=== PATIENT | male | born 1970 | race Caucasian/White ===

== ENCOUNTER 2017-09-05 09:29 | Day surgery (SDC) | payer OTHER ==
--- NOTE | 2017-09-05 09:16 | GHP ---
[f rep st] PREOP HISTORY AND PHYSICAL DATE OF ADMISSION: 09/05/2017 CHIEF COMPLAINT: Colon cancer. HISTORY OF PRESENT ILLNESS: The patient is a 46-year-old man who had blood per rectum and ultimately had a colonoscopy which showed a near circumferential, 10-cm long sigmoid colonic mass. He is still having regular bowel movements. They are softer and having 1-3 bowel movements a day. He is not singh ving a large amount of blood. He had a CT scan, which showed 10 lesions in the liver mainly on the r ight side. He will be undergoing neoadjuvant chemotherapy. He presents for port placement. PAST MEDICAL HISTORY: Anxiety, diabetes, asthma. PAST SURGICAL HISTORY: None. MEDICATIONS: Advair, Adderall, Lamictal, Zoloft. FAMILY HISTORY: Diabetes, heart disease, hypertension, prostate cancer. SOCIAL HISTORY: He does drink alcohol. He is . He never has used tobacco. REVIEW OF SYSTEMS: 10-point review of systems negative except for anxiety otherwise per HPI. PHYSICAL EXAMINATION: GENERAL APPEARANCE: Pleasant, well-nourished, well-groomed man at visit with . HEENT: Normocephalic. No gross hearing deficits. Mucous membranes moist. Pupils equal and round. No scleral icterus. LUNGS: Clear to auscultation bilaterally. No increased work of breathi ng. CARDIAC: Regular rate. No peripheral edema. ABDOMEN: No surgical incisions. Soft, nontender , nondistended. MUSCULOSKELETAL: Normal gait. Normal nails. PSYCH: Anxious. NEURO: Grossly inta ct. IMPRESSION AND PLAN: The patient is a 46-year-old with metastatic colon cancer. I will place a port . The risks and benefits, including, but not limited to, stroke, heart attack, , blood clots, i nfection, bleeding, pneumothorax were discussed. /[id number]/MODL
[~2017-09-05 09:29] MED LIST: ceFAZolin 2 GM/DEXTROSE 100 ML IV ONE
[2017-09-05] MEDS ORDERED: BUPIVACAINE 0.5% 30 ML SDV ONE (10:22)
[2017-09-05] MEDS ORDERED: LR 1,000 ML IV ONE (10:52)
[2017-09-05] MEDS ORDERED: MIDAZOLAM 2 MG/2 ML VIAL ONE ×2 (11:10→11:34)
[2017-09-05] MEDS ORDERED: PROPOFOL/EMULSION 500 MG/50 ML BOTTLE IV ONE (11:10)
[2017-09-05] MEDS ORDERED: fentaNYL 100 MCG/2 ML INJ ONE (11:10)
[2017-09-05] MEDS ORDERED: SUGAMMADEX SODIUM 200 MG/2 ML VIAL IVP ONE (11:31)
[2017-09-05] MEDS ORDERED: ROCURONIUM 50 MG/5 ML VIAL ONE (11:31)
[2017-09-05] MEDS ORDERED: ONDANSETRON 4 MG/2 ML VIAL ONE (11:31)
[2017-09-05] MEDS ORDERED: SUCCINYLCHOLINE CHLORIDE*ANESTHESIA ONLY*200 MG/10 ML SYR IVP ONE (11:31)
[2017-09-05] MEDS ORDERED: LIDOCAINE 2% 5 ML SDV ONE (11:31)
[2017-09-05] MEDS ORDERED: NALOXONE HCL 0.4 MG/ML INJ IVP PRN (11:50)
[2017-09-05] MEDS ORDERED: ALBUTEROL 3 ML DEYVIAL IH PRN (11:50)
[2017-09-05] MEDS ORDERED: LR 500 ML IV PRN (11:50)
[2017-09-05] MEDS ORDERED: ONDANSETRON 4 MG/2 ML VIAL IVP PRN (11:50)
[2017-09-05] MEDS ORDERED: fentaNYL 100 MCG/2 ML INJ IVP PRN (11:50)
[2017-09-05] MEDS ORDERED: DEXAMETHASONE 4 MG/ML VIAL IVP PRN (11:50)
--- NOTE | 2017-09-05 11:50 | PDANEPAE ---
ANE Past Medical History - Cardiovascular History Hx Hypertension: No Hx Arrhythmias: No Hx Chest Pain: No Hx Coronary Artery / Peripheral Vascular Disease: No Hx CHF / Valvular Disease: No Hx Palpitations: No - Pulmonary History Hx COPD: No Hx Asthma/Reactive Airway Disease: Yes Hx Recent Upper Respiratory Infection: No Hx Oxygen in Use at Home: No Hx Sleep Apnea: Yes Sleep Apnea Screening Result - Last Documented: Positive Pulmonary History Comment: asthma worse with activity and dust exposure - Neurologic History Hx Cerebrovascular Accident: No Hx Seizures: No Hx Dementia: No - Endocrine History Hx Diabetes: Yes Endocrine History Comment: pre diabetic - Renal History Hx Renal Disorders: No - Liver History Hx Hepatic Disorders: No - Neurological & Psychiatric Hx Hx Neurological and Psychiatric Disorders: Yes Neurological / Psychiatric History Comment: bipolar , depression& anxiety - Cancer History Hx Cancer: Yes Cancer History Comment: coon cancer with mets to liver - Congenital Disorder History Hx Congenital Disorders: No - GI History Hx Gastrointestinal Disorders: No - Chronic Pain History Chronic Pain: No - Surgical History Prior Surgeries: as had inguinal hernia repair. as had soft palate repair ANE Review of Systems Review of Systems: - Exercise capacity METS (RN): 4 METS ANE Patient History - Allergies Allergies/Adverse Reactions: No Known Allergies Allergy (Verified 09/05/17 10:32) - Home Medications Home Medications: Lamictal 02/15/11 [Last Taken 09/05/17 07:00] Adderall 10 mg Tablet 07/31/16 [Last Taken 08/29/17] Citalopram 07/31/16 [Last Taken 09/05/17 07:00] ZYRTEC 07/31/16 [Last Taken 09/05/17 07:00] - NPO status NPO Since - Liquids (Date): 09/05/17 NPO Since - Liquids (Time): 07:00 NPO Since - Solids (Date): 09/04/17 NPO Since - Solids (Time): 20:00 - Smoking Hx Smoking Status: Never smoked - Family Anes Hx Family Hx Anesthesia Complications: none ANE Labs/Vital Signs - Vital Signs Blood Pressure: 131/82 Heart Rate: 67 Respiratory Rate: 16 O2 Sat (%): 96 Height: 190.5 cm Weight: 136.078 kg ANE Physical Exam - Airway Neck exam: decreased ROM, increased neck circumference, short neck Mallampati Score: Class 2 Mouth exam: normal dental/mouth exam - Pulmonary Pulmonary: no respiratory distress, no rales or rhonchi, clear to auscultation - Cardiovascular Cardiovascular: regular rate and rhythym, no murmur, rub, or gallop - ASA Status ASA Status: III ANE Anesthesia Plan Anesthesia Plan: general endotracheal anesthesia
[2017-09-05] MEDS ORDERED: ALBUTEROL HFA ANES ONLY 200 PUFFS/8.5 GM MDI IH ONE (12:14)
--- NOTE | 2017-09-05 12:15 | POSTOPPROG ---
Post Op Note Date of Operation: 09/05/17 Surgeon: Bee Manzanares Anesthesiologist: mayela Anesthesia: GET(General Endotracheal) Pre-op Diagnosis: colon ca Post-op Diagnosis: same Indication: 46 yo with colon ca Procedure: R IJ port Findings: tip ra Inf/Abcess present in the surg proc area at time of surgery?: No EBL: Minimal Specimen(s): none
[2017-09-05] MEDS ORDERED: ACETAMINOPHEN 500 MG TAB PO ONE (13:00)
[2017-09-05 13:22] VITALS: PULSE 60; RESP 16; TEMP 98.1
[2017-09-05 14:42] VITALS: BP 126/72; O2SAT 95
--- NOTE | 2017-09-07 12:45 | GOP ---
[f rep st] OPERATIVE REPORT DATE OF OPERATION: 09/05/2017 SURGEON: Bee Manzanares MD ANESTHESIA: General. ANESTHESIOLOGIST: Idalia Cruz MD PREOPERATIVE DIAGNOSIS: Metastatic colon cancer. POSTOPERATIVE DIAGNOSIS: Metastatic colon cancer. PROCEDURE PERFORMED: Right ultrasound-guided internal jugular PowerPort placement. FINDINGS: Tip in the SVC/RA junction. SPECIMENS: None. ESTIMATED BLOOD LOSS: Minimal. INDICATIONS: The patient is a 46-year-old man with a sigmoid colon mass and metastasis to his liver. He presents for a port for neoadjuvant chemotherapy. DESCRIPTION OF PROCEDURE: The patient was brought into the operating room, placed supine on the tabl e, and general anesthesia was administered. His neck and chest were prepped and draped in the usual sterile fashion. I infiltrated all sites with 0.5% Marcaine prior to making incisions. I accessed t he internal jugular vein with a large-bore needle and dark return of blood flow. I threaded the guid ewire and removed the needle. I created a pocket to accommodate the port in the right chest, and I t unneled this up to the insertion site. I measured the catheter and cut it to size. Under fluoroscop y, using the Seldinger technique, I placed a dilator and sheath over the wire. I removed the wire an d the dilator. The catheter was threaded through the sheath, and the sheath was peeled away. Placem ent was confirmed with fluoroscopy. The port withdrew blood easily and was flushed with heparin. Th e pocket was closed with 3-0 Vicryl followed by 4-0 Monocryl. Dermabond applied. He was awakened in the operating room, extubated, and transferred to PACU in stable condition. The chest x-ray showed port in good position without evidence of pneumothorax. /[id number]/MODL
== END 2017-09-05 14:44 | disposition home or self-care (01) ==
LOC: FSGY 09:29
PROVIDERS: ATTEND Surgery
PROC: B543ZZA Ultrasonography of Right Jugular Veins, Guidance (ICD-10-PCS; principal; 2017-09-05 11:00)
PROC: 02HV33Z Insertion of Infusion Device into Superior Vena Cava, Percutaneous Approach (ICD-10-PCS; principal; 2017-09-05 11:00)
PROC: 0JH60XZ Insertion of Tunneled Vascular Access Device into Chest Subcutaneous Tissue and Fascia, Open Approach (ICD-10-PCS; principal; 2017-09-05 11:00)
DX: C18.7 Malignant neoplasm of sigmoid colon (principal); C78.7 Secondary malignant neoplasm of liver and intrahepatic bile duct; F41.8 Other specified anxiety disorders; E11.9 Type 2 diabetes mellitus without complications; J45.909 Unspecified asthma, uncomplicated
CPT/HCPCS: C1788; J0330; J0690; J1642; J2250; J2405; J2704; J3010

== ENCOUNTER 2017-12-21 11:45 | Inpatient (IN) | payer OTHER ==
[2017-12-21] MEDS ORDERED: ONDANSETRON 4 MG/2 ML VIAL IVP ONE (12:30)
[2017-12-21] MEDS ORDERED: NS 1,000 ML IV ONE ×2 (12:30)
[2017-12-21] MEDS ORDERED: LORazepam 2 MG/ML INJ IVP PRN (16:00)
[2017-12-21] MEDS ORDERED: PROMETHAZINE HCL 25 MG/ML INJ IVP PRN (16:00)
[2017-12-21] MEDS ORDERED: ONDANSETRON 4 MG/2 ML VIAL IVP PRN (16:00)
[2017-12-21] MEDS ORDERED: ACETAMINOPHEN 325 MG TAB PO PRN (16:00)
[2017-12-21] MEDS ORDERED: morphINE PCA 30 MG/30 ML PCA IV PRN (16:02)
[2017-12-21] MEDS ORDERED: NALOXONE HCL 0.4 MG/ML INJ IVP PRN (16:02)
[2017-12-21 16:28] LABS: PLATELET COUNT 245 10^3/uL (150-400)
[2017-12-21 16:42] LABS: INR 0.96 (0.83-1.16)
--- NOTE | 2017-12-21 17:03 | PDGENHP ---
History and Physical History and Physical: CC: Abdominal pain bloating vomiting HISTORY: This man has a history of sigmoid carcinoma diagnosed August on chemotherapy for that. Primary surgery was delayed a a to try and treat his tumor 1st. He has been receiving chemotherapy since August. His last dose was 2 days ago. The patient was feeling well with minimal side effects from his chemotherapy if any on this round. He had some slight oral sores that have resolved by his account. However today he started having a lot of growing noises is abdomen, a lot of bloating, and has had increasing pain with a lot of waves of colic. He has vomited several times. There has been a couple of small amounts of brown liquid stool that he has past that have not led to any relief of symptoms. He has no bleeding, no chills or sweats, no shortness of breath, no one around him is sick with any digestive symptoms. He has not traveled anywhere recently The patient's initial therapy was FOLFOX and when he did not have improvement in liver Mets he switched to FOLFIRI and avastin. No radiation treatment. His oncologist is Dr. Stone and Dr. Bee Manzanares has seen him in surgical consultation as an outpatient. 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 I have reviewed the list and ordered appropriate medicines. PHYSICAL EXAMINATION: Vital Signs: Stable vital signs without fever Donor Recruiter: Sinus rhythm Examination: General: alert, oriented, good mentation, looks moderately uncomfortable Skin: warm, dry, good color, no rash no jaundice HEENT: normal, no oral ulcerations Neck: no mass or jvd Resps: relaxed Lungs: clear breath sounds Heart: regular, no murmur Abdomen: soft, distended with increased bowel sounds that are tympanitic, no signs of peritonitis Upper Extremities: normal Lower Extremities: no edema, warm No Bleeding or bruising Neurologic: normal speech/language, normal card seller, no focal weakness IV site: looks normal LABORATORY DATA: On chemistry CO2 is a bit low and anion gap of slightly at 17 otherwise unremarkable CBC unremarkable RADIOLOGY STUDIES: I reviewed the images from his CT scan done in the ER today, my impression is that there is distention of the colon with air-fluid in stool up to the mid sigmoid where it is decompressed. I cannot see specifically a mass. There is no evidence of abscess free air or perforation. No inflammatory changes that I notice around the bowel per se. There are some metastatic looking lesions in the liver but I do have not compared these to previous CTs ASSESSMENT: 1-sigmoid colon obstruction and patient with the sigmoid colon cancer on chemotherapy 2-uncontrolled abdominal pain and nausea 3-recent avastin last dose 2 days ago 4-history of asthma appears stable at this time 5-pre diabetes with mild elevation of blood sugar at the moment PLANS: -inpatient admission to the cancer care unit -IV hydration and symptomatic medications for his pain and nausea -DVT prophylaxis -I have spoken with Dr. Tabares, and Dr. Joshi and I have communicated as well. Is very likely that he will require surgery for this episode although that is not an emergent necessity at this moment. He does not at this time require nasogastric tube but may if his symptoms worsen. I reviewed with the patient and his at the bedside the fact that this will likely lead to a surgery but will give him some time to declare whether he will resolve this or not. A discuss the potential complications of bowel obstruction and they understand. I have reviewed the patient's case in detail with Dr. Tabares I have reviewed the patient's past medical records as part of this assessment, including outpatient clinic records
[2017-12-21] MEDS ORDERED: ALBUTEROL 60 PUFFS/8 GM MDI IH PRN (17:29)
--- NOTE | 2017-12-21 17:46 | PDMN ---
Medical Necessity Medical necessity: C/M review: Patient meets INPT criteria under MCG M-210 Intestinal obstruction: Acute and persistent sigmoid colon obstruction on CT, uncontrolled abdominal pain , nausea requiring IV Morphine and IV Zofran in ED, planned Oncology consult, Surgery consult, ongoing NPO, IV fluids, pulse oximetry, IV antiemetics, IV Morphine POLICY SPECIALIST as needed, comorbid sigmoid colon cancer (diagnosed 08/2017) on current chemotherapy, recent Avastin dose 12/19/17 , history of asthma, pre-diabetes, obesity. MD anticipates > 2 MN LOS for ongoing med nec for eval and TX of above.
[2017-12-21] MEDS: D5W 1/2 NS W/ 20 KCl/L 1,000 ML IV SCH (18:42)
[2017-12-21] MEDS: FLUTICASONE/SALMETER 250/50MCG DISKUS IH SCH (20:01)
[2017-12-22 04:57] LABS: PLATELET COUNT 212 10^3/uL (150-400)
[2017-12-22] MEDS: ENOXAPARIN 40 MG/0.4 ML SYR SC SCH (08:25)
[2017-12-22] MEDS: FLUTICASONE/SALMETER 250/50MCG DISKUS IH SCH ×2 (08:52→20:19)
--- NOTE | 2017-12-22 12:29 | GCON ---
[f rep st] CONSULTATION DATE OF CONSULTATION: 12/22/2017 REASON FOR CONSULTATION: Obstructing sigmoid colon cancer. REQUESTING PHYSICIAN: Jason Isaac MD. HISTORY OF PRESENT ILLNESS: The patient is a 47-year-old man, well known to me. He was diagnosed wi th a T3 N1a sigmoid colon cancer in August 2017. His staged diagnosis is stage IV A. He has a BRAF wild type gene, and his MSI is low. He has been on FOLFOX, and has recently undergone in addition 4 cycles with Avastin. The mass initially was mostly circumferential and about 10 [address] in length. His CT scan had shown at least 10 liver lesions, up to 2.1 cm in size, and some peritoneal implants. He was in a clinical trial which gave him Y-90 after his first cycle of FOLFIRI. The patient was doing well until yesterday. He felt like he had to pass gas and stool through his rectum, but was unable t o do so, and his pain was an 8 out of 10. He got admitted, was made n.p.o., and throughout the [facility] and today he has had over 6 stools. He did have some blood in the last stool, but he reports this is normal after his chemotherapy. He is feeling much improved. PAST MEDICAL HISTORY: Colon cancer as above, anxiety, asthma, depression. PAST SURGICAL HISTORY: Port placement. ALLERGIES: No known drug allergies. MEDICATIONS: Reviewed. FAMILY HISTORY: Includes diabetes, heart disease, hypertension, and prostate cancer. SOCIAL HISTORY: He is . He does not use any illegal substances. He is not using tobacco. [employer] y[employer] has recently gone back to work. REVIEW OF SYSTEMS: Prior to this admission, he was feeling well enough to go back to work. His 10-p oint Review of Systems was essentially negative except for continued changes in his bowel habits. PHYSICAL EXAMINATION: VITALS: Reviewed. GENERAL: Pleasant, well-nourished, well-groomed man lying in bed. at bedside. HEENT: Normocephalic. No gross hearing deficits. Mucous membranes mois t. Pupils equal and round. No scleral icterus. LUNGS: No increased work of breathing. CARDIAC: Regular rate. ABDOMEN: He is soft, he is nontender, and he is nondistended. MUSCULOSKELETAL: Norm al nails. NEURO: Grossly intact. PSYCH: Mood and affect normal. LAB RESULTS: I personally reviewed the results of his CT scan, and can see a near-obstructing sigmoi d mass with stool and colonic dilatation upstream. He also does have some lesions in the liver. IMPRESSION AND PLAN: The patient is a 47-year-old man with metastatic colon cancer. His obstruction has resolved with medical management. I think it is appropriate to start him back on clears and adv ance diet as tolerated. It is unlikely he will need surgery at this time. The patient and I did dis cuss that should this be recurrent, or should he have problems again tolerating food, that he would l ikely need a diverting ostomy. He has recently had Avastin, which makes surgery more high risk, but an anastomosis would not be planned. The patient and his understand. I discussed the case with Dr. Robledo and Dr. Tabares. /[id number]/PRISCILAL
--- NOTE | 2017-12-22 12:52 | ASMTCMCOM ---
CM Note CM Note Notes: Pt with hx of colon ca admitted with sigmoid colon obstruction which has resolved. Anticipate will DC with no needs when medically ready. Date Signed: 12/22/2017 12:52 PM Electronically Signed By:Melina Gastelum LCSW
[2017-12-22] MEDS: CITALOPRAM 20 MG TAB PO SCH (13:25)
[2017-12-22] MEDS: lamoTRIgine 100 MG TAB PO SCH (13:26)
[2017-12-22] MEDS: PROCHLORPERAZINE MALEATE 10 MG TAB PO SCH ×2 (13:26→22:34)
--- NOTE | 2017-12-22 13:59 | GCON ---
[f rep st] CONSULTATION MEDICAL ONCOLOGY FOLLOWUP CONSULTATION DATE OF CONSULTATION: 12/22/2017 REASON FOR CONSULTATION: Partial bowel obstruction in the setting of metastatic colon cancer. RECOMMENDATIONS: 1. Agree with conservative management at this time, with IV fluids and gradual advancement of diet. 2. The patient could benefit from dietitian consult while in the hospital for a low-residue diet. 3. Provided that the patient does not require surgery, he will be due for his next cycle of FOLFIRI plus bevacizumab on January 02, 2018. ASSESSMENT: This 47-year-old white male, who is followed primarily by my partner, Dr. Urban Stone as an outpatient, has a history of colon cancer. The patient presented with his diagnosis of stage AUSTEN adenocarcinoma of the sigmoid colon in August of 2017. At that time, he had a 25-pound weight l oss and iron deficiency. 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 The actual size of his metastases were up to 2.1 cm. The patient completed 4 cycles of FOLFOX. He enrolled in a clinical t rial, which may give him a dose of Y90 after the 1st cycle of FOLFIRI. Yesterday the patient developed nausea, vomiting, and severe abdominal pain. He felt he needed to singh ve a bowel movement, could not. His pump was discontinued yesterday at the end of the 4th cycle of F OLFIRI plus bevacizumab. That was yesterday. At the time of its discontinuation, he significant abd ominal pain as previously mentioned and was seen in the emergency room where he was admitted for furt her observation and evaluation. Since then, the patient has had multiple bowel movements. His nausea and vomiting have resolved. He is currently on intravenous fluids and will be advancing his diet as tolerated. We are hoping to av oid surgery. He seems like he is opening up with conservative management at this time. Surgery is a t increased risk because of the bevacizumab that is part of his regimen. Hopefully the patient will be able to be discharged in the next 24-48 hours, depending on his tolerance of oral food and fluids. PAST MEDICAL HISTORY: Remarkable for glucose intolerance and bipolar disorder. SOCIAL HISTORY: Does not smoke. He drinks occasionally. He is to his . He has 2 child moose. FAMILY HISTORY: Remarkable for his paternal grandfather having prostate cancer at age 70. REVIEW OF SYSTEMS: At the moment shows no nausea or vomiting. His abdominal pain is reduced and he has had multiple bowel movements. He reports no shortness of breath. His 10 system review is otherw ise unremarkable at this time. PHYSICAL EXAMINATION: GENERAL: A well-developed white male, in no acute distress. He is alert, elijah ented x3. LUNGS: Clear to auscultation. CARDIAC: Regular rate and rhythm. ABDOMEN: An obese abd omen. Active bowel sound, which is soft. LABORATORY EXAM: Today shows a white count of 4.39, with a hemoglobin of 13.8 and a platelet count o f 212,000. His PT and INR are normal. His creatinine is normal at 0.9. His liver functions are nor mal. Thank you very much for allowing us to participate in this pleasant gentleman's care. We will look f orward to continuing to assist with his management during this hospitalization and beyond. /[id number]/MODL
--- NOTE | 2017-12-22 15:04 | EDPHY ---
H & P Stated Complaint: abdominal pain n/v while receiving chemo this morning HPI/ROS: CHIEF COMPLAINT: Nausea, vomiting, abdominal distension HISTORY OF PRESENT ILLNESS: The patient presents to the ED with complaints of nausea, vomiting and abdominal distension. He has history of metastatic colon cancer. He is currently receiving chemotherapy in anticipation a surgery at the [facility]. The patient presents to the today with complaints severe pain and vomiting. He has no prior history of obstruction or perforation. The patient has had a chemo port placed by Dr. Bee Manzanares. He is currently under the care of [facility]. The patient denies any fever, cough or congestion. He reports moderate generalized abdominal pain and discomfort. REVIEW OF SYSTEMS: A comprehensive 10 point review of systems is otherwise negative aside from elements mentioned in the history of present illness. Source: Patient, Family - Personal History Current Tetanus/Diphtheria Vaccine: Yes Current Tetanus Diphtheria and Acellular Pertussis (TDAP): Yes Tetanus Vaccine Date: < 10 years - Medical/Surgical History Hx Asthma: Yes Hx Chronic Respiratory Disease: Yes Hx Diabetes: No Hx Cardiac Disease: No Hx Renal Disease: No Hx Cirrhosis: No Hx Alcoholism: No Hx HIV/AIDS: No Hx Splenectomy or Spleen Trauma: No Other PMH: PMHx: asthma, bipolar II, COPD, MOLINA, colon CA. PSHx: palate repair, ear tubes - Social History Smoking Status: Never smoked - Physical Exam Exam: General Appearance: Alert, mild discomfort Eyes: Pupils equal and round no pallor or injection ENT, Mouth: Mucous membranes moist Respiratory: There are no retractions, lungs are clear to auscultation Cardiovascular: Regular rate and rhythm Gastrointestinal: Slightly distended, hypoactive bowel sounds, mild generalized tenderness, no peritoneal signs Neurological: A&O, normal motor function, normal sensory exam, normal cranial nerves Skin: Warm and dry, no rashes Musculoskeletal: Neck is supple nontender Extremities: symmetrical, full range of motion Constitutional: Initial Vital Signs Temperature (C) 36.3 C 12/21/17 11:47 Heart Rate 77 12/21/17 11:47 Respiratory Rate 20 12/21/17 11:47 Blood Pressure 145/99 H 12/21/17 11:47 O2 Sat (%) 96 12/21/17 11:47 O2 Delivery Mode Nasal Cannula O2 (L/minute) 2 Allergies/Adverse Reactions: No Known Allergies Allergy (Verified 09/05/17 10:32) Home Medications: Medication Instructions Recorded lamoTRIgine [LamICTAL 100 MG (*)] 200 mg PO DAILY #0 02/15/11 Citalopram Hydrobromide [Celexa] 40 mg PO DAILY #0 07/31/16 Dextroamphetamine/Amphetamine 30 mg PO DAILY #0 07/31/16 [Adderall Xr 30 mg Capsule] Albuterol [Proventil Inhaler HFA 2 puffs IH Q4 PRN 12/21/17 (*)] Dextroamphetamine/Amphetamine 5 - 10 mg PO DAILY PRN 12/21/17 [Adderall 5 mg Tablet] Fluticasone/Salmeter 250/50Mcg 1 puffs IH BID 12/21/17 [Advair 250/50 (*)] Prochlorperazine Maleate 10 mg PO Q6H 12/21/17 [Compazine 10mg (*)] Medical Decision Making ED Course/Re-evaluation: ED database: CT abdomen pelvis with IV contrast: Colonic distension suggesting obstruction at the level of the sigmoid colon mass. Images reviewed by myself and discussed with Dr. Crump. The patient does have chronic hepatic metastases noted. See CBC within normal limits, serum chemistries within normal limits, liver function test within normal limits. ED course: Patient had an IV established. He received 2 L of normal saline, IV Zofran and morphine. The patient was taken for CT scan of the abdomen pelvis which demonstrates a colonic obstruction. The patient underwent multiple examinations in the ED by myself over 2.5 hr period and continues to have fairly significant pain tenderness and distention. Consultation was made with Dr. Bee Manzanares from the surgery service and Dr. Jason Isaac from the hospitalist service. The patient will be admitted to the hospital for further management and treatment of his colonic obstruction. Differential Diagnosis: Differential diagnosis considered includes perforation, obstruction, dehydration , metabolic abnormality, peritonitis - Data Points Medications Given: Citalopram Hydrobromide (Celexa) 40 mg PO DAILY CEM Stop: 06/20/18 12:59 Last Admin: 12/22/17 13:25 Dose: 40 mg Enoxaparin Sodium (Lovenox) 40 mg SC DAILY CEM Stop: 06/20/18 08:59 Last Admin: 12/22/17 08:25 Dose: 40 mg Potassium Chloride/Dextrose/Sod Cl (D5w 1/2 Ns W/ 20 Kcl/L) 1,000 mls @ 150 mls /hr IV CONT CEM Stop: 06/19/18 15:59 Last Admin: 12/21/17 18:42 Dose: 1,000 mls Lamotrigine (Lamictal) 200 mg PO DAILY CEM Stop: 06/20/18 12:59 Last Admin: 12/22/17 13:26 Dose: 200 mg Morphine Sulfate (Morphine) 1 - 2 mg IVP Q2HRS PRN PRN Reason: Pain, Severe Unable to Take PO Stop: 12/31/17 22:33 Last Admin: 12/21/17 23:29 Dose: 2 mg Prochlorperazine Maleate (Compazine) 10 mg PO Q6H CEM Stop: 06/20/18 12:59 Last Admin: 12/22/17 13:26 Dose: 10 mg Fluticasone/Salmeterol (Advair) 1 puffs IH BID [facility] Stop: 06/19/18 20:59 Last Admin: 12/22/17 08:52 Dose: 1 puffs Discontinued Medications Sodium Chloride (Ns) 1,000 mls @ 0 mls/hr IV ONCE ONE PRN Reason: Wide Open Stop: 12/21/17 12:31 Last Admin: 12/21/17 12:30 Dose: 1,000 mls Sodium Chloride (Ns) 1,000 mls @ 0 mls/hr IV EDNOW ONE PRN Reason: Wide Open Stop: 12/21/17 12:31 Last Admin: 12/21/17 12:30 Dose: 1,000 mls Morphine Sulfate (Morphine) 4 mg IVP EDNOW ONE Stop: 12/21/17 14:21 Last Admin: 12/21/17 14:25 Dose: 4 mg Morphine Sulfate (Morphine) 4 mg IVP EDNOW ONE Stop: 12/21/17 12:31 Last Admin: 12/21/17 12:30 Dose: 4 mg Ondansetron HCl (Zofran) 4 mg IVP ONCE ONE Stop: 12/21/17 12:31 Last Admin: 12/21/17 12:30 Dose: 4 mg Departure - Departure Disposition: [facility] Clinical Impression: Colonic obstruction, Colon cancer Condition: Fair
[2017-12-22] MEDS: D5W 1/2 NS W/ 20 KCl/L 1,000 ML IV SCH ×2 (15:07→21:03)
--- NOTE | 2017-12-22 20:50 | HOSPPROG ---
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 2/2 malignancy, responding to supportive care , moving bowels today - cont IVF, slow diet advancement - d/w Dr. Manzanares, if patient's condition does worsen and he needs surgery, he would get ostomy # Colon cancer. Appreciate oncology consultation, s/p chemo w/ avastin # Chronic asthma. Stable, no exacerbation # MOLINA. Cont on CPAP Diet. Advancing PPx. High risk, lovenox 40 Code. Full Dispo. ADD 12/23, pending stabilization of above. Subjective: abd pain abated, fatigued Objective: Vital Signs Temp Pulse Resp BP Pulse Ox 36.7 C 85 16 122/80 H 94 12/22/17 19:32 12/22/17 19:32 12/22/17 19:32 12/22/17 19:32 12/22/17 19:32 Laboratory Results 12/22/17 04:29 12/22/17 04:29 12/21/17 12/22/17 12/23/17 05:59 05:59 05:59 Intake Total 0 3504 Balance 0 3504 PT 13.0 SEC (12.0-15.0) 12/21/17 16:12 INR 0.96 (0.83-1.16) 12/21/17 16:12 - Pending Discharge Pending Discharge Within 24 Hours: Yes Pending Discharge Date: 12/23/17 Pending Discharge Time: 11:00 - Physical Exam Constitutional: no apparent distress, not in pain, obese, No uncomfortable Cardiovascular: regular rate and rhythym, no murmur, rub, or gallop Respiratory: no respiratory distress, no rales or rhonchi, clear to auscultation Gastrointestinal: normoactive bowel sounds, soft, non-tender abdomen, no palpable masses, distension (mildly) Psychiatric: not anxious, not encephalopathic, thought process linear, flat affect ICD10 Worksheet Patient Problems: Problems Problem Status Onset Colonic obstruction Acute Colon cancer Acute
[2017-12-23] MEDS: PROCHLORPERAZINE MALEATE 10 MG TAB PO SCH ×3 (00:14→12:45)
[2017-12-23] MEDS: D5W 1/2 NS W/ 20 KCl/L 1,000 ML IV SCH ×2 (04:29→10:53)
[2017-12-23] MEDS: lamoTRIgine 100 MG TAB PO SCH (08:21)
[2017-12-23] MEDS: ENOXAPARIN 40 MG/0.4 ML SYR SC SCH (08:21)
[2017-12-23] MEDS: CITALOPRAM 20 MG TAB PO SCH (08:21)
[2017-12-23] MEDS ORDERED: ADDERALL 10 MG TAB PO PRN (09:00)
[2017-12-23] MEDS: FLUTICASONE/SALMETER 250/50MCG DISKUS IH SCH (09:38)
[2017-12-23 09:41] VITALS: O2SAT 94
--- NOTE | 2017-12-23 09:46 | SOAPPROG ---
SOAP Progress Note Assessment/Plan: Assessment/Plan: 47yo M admitted with obstructing sigmoid colon cancer. FOLFIRI per Dr. Stone Return of bowel function Advance diet as tolerated If recurrence, will need to consider diverting ostomy DC per hospitalists S: feeling well. pain 2/10, which is his baseline. passing flatus and having BMs O: laying in bed, comfortable, NAD No increased WOB Abd soft, nt, nd 12/23/17 09:47 Objective: Vital Signs Temp Pulse Resp BP Pulse Ox 36.3 C 74 14 132/78 H 94 12/23/17 08:44 12/23/17 09:40 12/23/17 09:40 12/23/17 08:48 12/23/17 09:40 Laboratory Results 12/22/17 04:29 12/22/17 04:29 12/22/17 12/23/17 12/24/17 05:59 05:59 05:59 Intake Total 0 6884 Balance 0 6884 PT 13.0 SEC (12.0-15.0) 12/21/17 16:12 INR 0.96 (0.83-1.16) 12/21/17 16:12 ICD10 Worksheet Patient Problems: Problems Problem Status Onset Colon cancer Acute Colonic obstruction Acute
[2017-12-23] MEDS ORDERED: ALTEPLASE 2 MG VIAL IVP ONE (11:01)
--- NOTE | 2017-12-23 11:04 | HOSPPROG ---
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 2/2 malignancy, responding to supportive care, moving bowels today resolved Colon cancer. Appreciate oncology consultation, s/p chemo w/ avastin Chronic asthma. Stable, no exacerbation MOLINA. Cont on CPAP Diet. Advancing PPx. High risk, lovenox 40 Code. Full Dispo. home today > 30 minutes Subjective: eating well. no cramping. moving bowels Objective: Vital Signs Temp Pulse Resp BP Pulse Ox 36.3 C 74 14 132/78 H 94 12/23/17 08:44 12/23/17 09:40 12/23/17 09:40 12/23/17 08:48 12/23/17 09:40 Laboratory Results 12/22/17 04:29 12/22/17 04:29 12/22/17 12/23/17 12/24/17 05:59 05:59 05:59 Intake Total 0 6884 Balance 0 6884 PT 13.0 SEC (12.0-15.0) 12/21/17 16:12 INR 0.96 (0.83-1.16) 12/21/17 16:12 - Physical Exam Constitutional: no apparent distress, appears nourished Eyes: PERRL, anicteric sclera Ears, Nose, Mouth, Throat: moist mucous membranes, hearing normal Cardiovascular: regular rate and rhythym, no murmur, rub, or gallop Respiratory: no respiratory distress, no rales or rhonchi Gastrointestinal: normoactive bowel sounds, No guarding, No rebound, No distension Genitourinary: no bladder fullness, No sena in urethra Skin: warm, normal color Musculoskeletal: full muscle strength Neurologic: AAOx3 ICD10 Worksheet Patient Problems: Problems Problem Status Onset Colon cancer Acute Colonic obstruction Acute
--- NOTE | 2017-12-23 11:04 | SOAPPROG ---
MARLA Progress Note Assessment/Plan: Assessment: 1. Metastatic colon cancer, KRAS mutated 2. Bowel obstruction due to tumor vs constipation Plan: - I spoke to Dr. Crump and asked him to compare the previous [facility] film (10/29) with the current one, to see if his cancer is progressive or not. - Rapid resolution of symptoms is more suggestive of constipation, though bowel obstruction could still be occurring. - OK to discharge patient when he is eating and drinking normally and pain well controlled. - I will review the CT with the patient when I have the comparison with the previous film 12/23/17 11:02 Subjective: feeling much better after BM. Objective: exam; Gen: NAD Lungs CTAB CV RRR no MGR Abd: +BS NT ND Ext no edema Vital Signs Temp Pulse Resp BP Pulse Ox 36.3 C 74 14 132/78 H 94 12/23/17 08:44 12/23/17 09:40 12/23/17 09:40 12/23/17 08:48 12/23/17 09:40 Laboratory Results 12/22/17 04:29 12/22/17 04:29 12/22/17 12/23/17 12/24/17 05:59 05:59 05:59 Intake Total 0 6884 Balance 0 6884 PT 13.0 SEC (12.0-15.0) 12/21/17 16:12 INR 0.96 (0.83-1.16) 12/21/17 16:12 - Time Spent With Patient Time Spent With Patient: 30 min ICD10 Worksheet Patient Problems: Problems Problem Status Onset Colon cancer Acute Colonic obstruction Acute
[2017-12-23 12:57] VITALS: BP 128/85; PULSE 66; RESP 16; TEMP 98
--- NOTE | 2017-12-23 21:15 | GDS ---
[f rep st] DISCHARGE SUMMARY DISCHARGE DIAGNOSES: 1. Known metastatic colon cancer with sigmoid primary. 2. Malignant bowel obstruction that resolved versus constipation. CONSULTS: Oncology and General Surgery. HOSPITAL COURSE: Please see admission history and physical by Dr. Kirill Isaac. The patient presente d with a feeling of bloating and the feeling of having to go to the bathroom, could not pass stool. He had an abdominal CT, which demonstrated a distention of the colon with thickening in the sigmoid. He underwent a bowel regimen with passing of firm and then subsequently liquid stool without abdomin al pain. He had no peritoneal signs, afebrile, not tachycardic. This does not clearly represent a p rogression of disease, and the CAT scan was interpreted as not necessarily, although it was not direc tly compared to his previous at [facility] CT scan. He is discharged home with no prescriptions. Outpatient followup with Oncology and General Surgery. Dr. Manzanares is his primary. /[id number]/MODL
== END 2017-12-23 13:52 | disposition home or self-care (01) | DRG 389 ==
LOC: F1N 17:28
PROVIDERS: ADMIT Internal Medicine; ATTEND Internal Medicine
DX: K56.690 Other partial intestinal obstruction (principal); K59.00 Constipation, unspecified; C18.7 Malignant neoplasm of sigmoid colon; C78.7 Secondary malignant neoplasm of liver and intrahepatic bile duct; F31.81 Bipolar II disorder; J44.9 Chronic obstructive pulmonary disease, unspecified; J45.909 Unspecified asthma, uncomplicated; R73.03 Prediabetes; E66.9 Obesity, unspecified; Z68.36 Body mass index [BMI] 36.0-36.9, adult
CPT/HCPCS: 96374; J1642; J1650; J2997

== ENCOUNTER 2018-02-02 18:46 | Inpatient (IN) | payer OTHER ==
--- NOTE | 2018-02-02 19:28 | EDPHY ---
HPI/HX/ROS/PE/MDM Narrative: CHIEF COMPLAINT: Lower abdominal pain, nausea, vomiting HPI: The patient is a 47 y/o male with a history of metastatic colon cancer and COPD complaining of lower abdominal pain, nausea, and vomiting onset this morning. On 12/21/17 he was admitted to this hospital for a colonic obstruction. They did not do any invasive treatments and the obstruction went away on its own. Today he is having a similar pain as the prior obstruction. He is not having the increased urgency to have a bowel movement like last time. Today he was able to have a bowel movement that had a small amount of blood; this is not abnormal. He is still on chemotherapy and has not had surgery. No fever, chills , urinary complaints, chest pain, shortness of breath, paresthesias, numbness. REVIEW OF SYSTEMS: Aside from elements discussed in the HPI, a comprehensive 10-point review of systems was reviewed and is negative. PMH: Metastatic colon cancer, COPD, asthma, hernia as a child SOCIAL HISTORY: at bedside, lives in [facility] PHYSICAL EXAM: General: Patient is alert, in no acute distress. ENT: Eyes are normal to inspection. ENT inspection normal. Neck: Normal inspection. Full range of motion. Respiratory: No respiratory distress. Breath sounds normal bilaterally. Cardiovascular: Regular rate and rhythm. Strong peripheral pulses. Normal cap refill. Abdomen: Mild RLQ tenderness to palpation. There are no peritoneal signs. There are normal bowel sounds. Back: Normal to inspection. No tenderness to palpation. Skin: Normal color. No rash. Warm and dry. Extremities: Normal appearance. Full range of motion. Neuro: Oriented x3. Normal motor function. Normal sensory function. ED Course: CTAP shows small air bubbles in RUQ, possible source near tumor in sigmoid. No bowel obstruction. I discussed the case with Dr. Vargas at 9:15pm - he recommends IV Invanz and admit Medicine. Discussed case with Dr. Ramirez. - Data Points Imaging: Discussed imaging studies w/ senior software analyst Radiologist, I viewed and interpreted images myself Laboratory Results: Laboratory Results 02/02/18 20:00 02/02/18 02/02/18 20:06 20:00 WBC 5.17 10^3/uL 10^3/uL (3.80-9.50) RBC 4.21 10^6/uL L 10^6/uL (4.40-6.38) Hgb 13.1 g/dL L g/dL (13.7-17.5) POC Hgb 13.3 gm/dL L gm/dL (13.7-17.5) Hct 37.6 % L % (40.0-51.0) POC Hct 39 % L % (40-51) MCV 89.3 fL fL (81.5-99.8) MCH 31.1 pg pg (27.9-34.1) MCHC 34.8 g/dL g/dL (32.4-36.7) RDW 13.9 % % (11.5-15.2) Plt Count 196 10^3/uL 10^3/uL (150-400) MPV 10.1 fL fL (8.7-11.7) Neut % (Auto) 73.6 % % (39.3-74.2) Lymph % (Auto) 20.7 % % (15.0-45.0) Faulkner % (Auto) 3.9 % L % (4.5-13.0) Eos % (Auto) 1.4 % % (0.6-7.6) Baso % (Auto) 0.2 % L % (0.3-1.7) Nucleat RBC Rel Count 0.0 % % (0.0-0.2) Absolute Neuts (auto) 3.81 10^3/uL 10^3/uL (1.70-6.50) Absolute Lymphs (auto) 1.07 10^3/uL 10^3/uL (1.00-3.00) Absolute Monos (auto) 0.20 10^3/uL L 10^3/uL (0.30-0.80) Absolute Eos (auto) 0.07 10^3/uL 10^3/uL (0.03-0.40) Absolute Basos (auto) 0.01 10^3/uL L 10^3/uL (0.02-0.10) Absolute Nucleated RBC 0.00 10^3/uL 10^3/uL (0-0.01) Immature Gran % 0.2 % % (0.0-1.1) Immature Gran # 0.01 10^3/uL 10^3/uL (0.00-0.10) POC Sodium 138 mEq/L mEq/L (135-145) POC Potassium 3.9 mEq/L mEq/L (3.3-5.0) POC Chloride 100 mEq/L mEq/L (97-110) POC BUN 16 mg/dL mg/dL (7-23) POC Creatinine 0.7 mg/dL mg/dL (0.7-1.3) POC Glucose 116 mg/dL H mg/dL (70-100) Medications Given: Discontinued Medications Sodium Chloride (Ns) 1,000 mls @ 0 mls/hr IV EDNOW ONE; Wide Open PRN Reason: Protocol Stop: 02/02/18 19:41 Last Admin: 02/02/18 20:03 Dose: 1,000 mls Point of Care Test Results: 02/02/18 20:06 POC Sodium 138 POC Potassium 3.9 POC Chloride 100 POC BUN 16 POC Creatinine 0.7 POC Glucose 116 H General Time Seen by Provider: 02/02/18 19:24 Initial Vital Signs: Initial Vital Signs Temperature (C) 37.0 C 02/02/18 18:49 Heart Rate 78 02/02/18 18:49 Respiratory Rate 20 02/02/18 18:49 Blood Pressure 129/85 H 02/02/18 18:49 O2 Sat (%) 96 02/02/18 18:49 O2 Delivery Mode Room Air Allergies/Adverse Reactions: No Known Allergies Allergy (Unverified 12/21/17 12:59) Home Medications: Medication Instructions Recorded lamoTRIgine [LamICTAL 100 MG (*)] 200 mg PO DAILY #0 02/15/11 Citalopram Hydrobromide [Celexa] 40 mg PO DAILY #0 07/31/16 Dextroamphetamine/Amphetamine 30 mg PO DAILY #0 07/31/16 [Adderall Xr 30 mg Capsule] Albuterol [Proventil Inhaler HFA 2 puffs IH Q4 PRN 12/21/17 (*)] Dextroamphetamine/Amphetamine 5 - 10 mg PO DAILY PRN 12/21/17 [Adderall 5 mg Tablet] Fluticasone/Salmeter 250/50Mcg 1 puffs IH BID 12/21/17 [Advair 250/50 (*)] Prochlorperazine Maleate 10 mg PO Q6H 12/21/17 [Compazine 10mg (*)] Departure - Departure Disposition: [facility] ([place], [place]) Inpatient Acute Clinical Impression: Abdominal pain, Colon cancer, Free intraperitoneal air Condition: Fair Referrals: Dot Gustafson MD [Primary Care Provider] - As per Instructions Report Scribed for: Urban Meza Report Scribed by: Shalonda Monahan Date of Report: 02/02/18 Time of Report: 19:27 Physician Review and Approval Statement: Portions of this note were transcribed by an ED scribe. I personally performed the history, physical exam, and medical decision making; and confirm the accuracy of the information in the transcribed note.
[2018-02-02] MEDS ORDERED: NS 1,000 ML IV ONE (19:40)
[2018-02-02 20:40] LABS: PLATELET COUNT 196 10^3/uL (150-400)
[2018-02-02] MEDS ORDERED: IOPAMIDOL (ISOVUE-300) 100 ML BTL ONE (20:41)
[2018-02-02] MEDS ORDERED: ERTAPENEM 1 GM VIAL IVP ONE (21:28)
[2018-02-02] MEDS ORDERED: ONDANSETRON 4 MG/2 ML VIAL IVP PRN (22:25)
[2018-02-02] MEDS ORDERED: ONDANSETRON DISINTEGRATING 4 MG TAB PO PRN (22:25)
[2018-02-02] MEDS ORDERED: oxyCODONE IR 5 MG TAB PO PRN (22:25)
[2018-02-02] MEDS ORDERED: ACETAMINOPHEN 325 MG TAB PO PRN (22:25)
[2018-02-02] MEDS ORDERED: HYDROmorphONE/DILAUDID 2 MG/ML INJ IVP PRN (22:25)
[2018-02-02] MEDS ORDERED: PROCHLORPERAZINE MALEATE 10 MG TAB PO PRN (23:16)
[2018-02-02] MEDS ORDERED: ALBUTEROL 60 PUFFS/8 GM MDI IH PRN (23:16)
[2018-02-02] MEDS ORDERED: CETIRIZINE 10 MG TAB PO PRN (23:16)
--- NOTE | 2018-02-02 23:54 | GHP ---
[f rep st] HISTORY AND PHYSICAL DATE OF ADMISSION: 02/02/2018 CHIEF COMPLAINT: Abdominal pain. HISTORY OF PRESENT ILLNESS: The patient is a 47-year-old male with a history of metastatic colon cancer, who presents to the emergency department with abdominal pain. He is followed by Dr. Stone at the [facility] and had his last chemo treatment end yesterday. He woke up this morning and had a relatively normal bowel movement. Shortly after the bowel movement, when he got back in bed, he began to feel increasing pain in his lower abdomen and right side of his abdomen. This has gotten worse throughout the day, and he presents to the emergency department for further evaluation. He has had associated nausea and vomiting and decreased oral intake for the past 2 days. He denies fevers or chills. He denies dysuria, frequency, urgency. He denies chest pain or shortness of breath. He does report intermittent blood in his bowel movements. He was recently admitted to the hospital in November 2017 for an obstruction, which resolved with conservative management. In the emergency department, CT scan revealed interval decrease in the thickness of the primary mass associated with the proximal sigmoid colon with interval development of free air, probably originating from the site of the carcinoma with gas bubbles under the right hemidiaphragm and in the mesentery adjacent to the mass. Surgery was consulted from the emergency department. The patient was started on IV Invanz, and he will be admitted to the hospital for further management. PAST MEDICAL HISTORY: 1. 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 Stone at the [facility]. Currently treated with FOLFIRI and Avastin. 2. Asthma. 3. Prediabetes. 4. Obesity. 5. Attention deficit hyperactivity disorder. MEDICATIONS: Please see [employer] for completed outpatient medications. ALLERGIES: He has no known drug allergies. SOCIAL HISTORY: The patient is and lives with his and two kids. He denies alcohol or tobacco use. 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 FAMILY HISTORY: Positive for diabetes, heart disease, hypertension, and prostate cancer. REVIEW OF SYSTEMS: A 10-point review of systems was performed and was negative except as per HPI. OBJECTIVE: VITAL SIGNS: Temperature is 37 degrees, blood pressure 110/65, heart rate 80, respiratory rate 16. He is 94% on room air. GENERAL: Patient is awake, alert, oriented, in no acute distress. HEENT: Head is atraumatic, normocephalic. Pupils equal, round, react to light. Oropharynx is clear. Mucous membranes are dry. NECK: Supple. There is no JVD. HEART: Regular rate and rhythm without murmur. LUNGS: Clear to auscultation bilaterally. ABDOMEN: Soft, nondistended. Mild tenderness to palpation in the lower abdomen and right upper quadrant. There is no rebound, rigidity, or guarding or peritoneal signs. Normoactive bowel sounds are present. EXTREMITIES: Without cyanosis, clubbing, or edema. NEUROLOGIC: Nonfocal. LABORATORY DATA: CBC reveals a normal white blood cell count of 5.2. Basic metabolic panel reveals normal electrolytes. Creatinine is normal at 0.7. CT abdomen/pelvis in the emergency department showed interval decrease in thickness in primary mass associated with proximal sigmoid colon on the upper pelvis with interval development of free air, probably originating from the site of carcinoma with gas bubbles under the right hemidiaphragm and in the mesentery adjacent to the mass. Slight decrease in size of numerous hepatic metastatic nodules and small nodules are once again seen within the mesentery adjacent to the proximal sigmoid, as well as some thickening of the omentum, suspicious for metastatic deposits. ASSESSMENT AND PLAN: The patient is a 47-year-old male with metastatic colon cancer who presents to the emergency department with abdominal pain and CT findings suggestive of micro perforation. 1. Sigmoid colon cancer with metastases to the liver. CT scan shows free air concerning for micro perforation. Surgery is consulted. Patient will be admitted for pain control and IV antibiotics. We will give him clear liquids for now and make him n.p.o. at midnight with surgical evaluation in the morning. There is concern for difficulty with wound healing given his recent Avastin use, and hopefully he can avoid operative intervention. We will need to notify Oncology of his admission tomorrow. 2. History of asthma. No evidence of an exacerbation. We will continue his outpatient inhalers. 3. Attention deficit hyperactivity disorder. Continue Adderall. 4. Deep venous thrombosis prophylaxis. Patient is high risk with cancer history. However, we will defer Lovenox for now in the event he requires surgical intervention. Place SCDs. CODE STATUS: Patient is full code. DISPOSITION: Patient is admitted to inpatient status. I anticipate greater than 48 hours hospitalization for ongoing management of his complications from colon cancer. /[id number]/MODL MTDD
[2018-02-03] MEDS: D5W NS W/ 20 KCl/L 1,000 ML IV SCH ×2 (00:07→10:21)
[2018-02-03] MEDS: HYDROmorphONE/DILAUDID 2 MG/ML INJ IVP PRN ×2 (00:15→10:32)
[2018-02-03 06:26] LABS: PLATELET COUNT 176 10^3/uL (150-400)
--- NOTE | 2018-02-03 06:42 | PDMN ---
Medical Necessity Medical necessity: Patient meets inpatient criteria per physician note and [facility] Gastroenterology GRG (presents with abd pain s/p normal BM; just finished last chemo for colon CA w/mets to liver; CT shows free air concerning for microperforation; NPO for possible surgical intervention; anticipated LOS > 2 midnights for possible surgery, IV hydration, Dilaudid, Invanz.)
--- NOTE | 2018-02-03 09:14 | HOSPPROG ---
Hospitalist Progress Note Assessment/Plan: #abdominal pain, colon perf -to surgery today -discussed with Dr Richards, appreciated his assistance #metastatic colon cancer -AVASTIN AND F0LFOX -discussed care plan with Dr Stone Subjective: Did not see pt, was already in surgery. Discussed care plan with Oncology and Surgery, revwd chart/labs/vitals. Objective: Vital Signs Temp Pulse Resp BP Pulse Ox 98.2 F 69 16 123/66 H 94 02/03/18 08:00 02/03/18 08:00 02/03/18 08:00 02/03/18 08:00 02/03/18 08:00 Laboratory Results 02/03/18 06:11 02/03/18 06:11 02/01/18 02/02/18 02/03/18 10:59 11:59 11:59 Intake Total 1787 Output Total 1100 Balance 687 ICD10 Worksheet Patient Problems: Problems Problem Status Onset Abdominal pain Acute Colon cancer Acute Free intraperitoneal air Acute Colonic obstruction Acute
[2018-02-03] MEDS: FLUTICASONE/SALMETER 250/50MCG DISKUS IH SCH ×2 (09:39→20:31)
[2018-02-03] MEDS: CITALOPRAM 20 MG TAB PO SCH (10:22)
[2018-02-03] MEDS: lamoTRIgine 100 MG TAB PO SCH (10:22)
[2018-02-03] MEDS: NON-FORMULARY NEW DRUG (Dextroamphetamine/Amphetamine [Adderall Xr 30 Mg Capsule] 30 MG) PO SCH (10:37)
[2018-02-03] MEDS ORDERED: ERTAPENEM 1 GM VIAL IV ONE (11:01)
--- NOTE | 2018-02-03 12:29 | SOAPPROG ---
MARLA Progress Note Assessment/Plan: Assessment: 47-YEAR-OLD MALE ON TREATMENT FOR COLON CANCER WITH LIVER METASTASIS RECEIVING AVASTIN AND F0LFOX PRESENTS WITH ABDOMINAL PAIN AND COLON PERFORATION WITH SMALL AMOUNTS OF FREE AIR IN THE ABDOMEN BLOOD COUNTS ARE ADEQUATE WITH A WHITE COUNT OF 5000 NONICTERIC/BREATH SOUNDS CLEAR/REGULAR RHYTHM/ABDOMEN SOFT WITH TENDERNESS IN THE MID ABDOMEN BUT NO REAL PERITONEAL SIGNS AFEBRILE IMPRESSION: PERFORATED SIGMOID CANCER. RISKS AND OPTIONS BEEN FULLY DISCUSSED THE PATIENT INCLUDING INCREASED RISK BECAUSE OF HIS CHEMOTHERAPY TREATMENT. WE HAVE DISCUSSED OBSERVATION AND TREATMENT WITH ANTIBIOTICS VERSUS SURGERY. AFTER DISCUSSION WITH THE PATIENT AND AND/OR KALEE WE PLAN ON PROCEEDING WITH SURGERY FOR COLECTOMY. PATIENT IS AWARE HE MAY GET A TEMPORARY COLOSTOMY Plan: COLON RESECTION 02/03/18 12:26 Objective: Vital Signs Temp Pulse Resp BP Pulse Ox 36.7 C 73 14 144/77 H 93 02/03/18 12:04 02/03/18 12:04 02/03/18 12:04 02/03/18 12:04 02/03/18 12:04 Laboratory Results 02/03/18 06:11 02/03/18 06:11 02/02/18 02/03/18 02/04/18 05:59 05:59 05:59 Intake Total 1787 Output Total 1100 Balance 687 ICD10 Worksheet Patient Problems: Problems Problem Status Onset Abdominal pain Acute Colon cancer Acute Free intraperitoneal air Acute Colonic obstruction Acute
[2018-02-03] MEDS ORDERED: LR 1,000 ML IV ONE ×2 (13:07→14:00)
--- NOTE | 2018-02-03 13:34 | PDANEPAE ---
ANE History of Present Illness ex lap ANE Past Medical History - Cardiovascular History Hx Hypertension: No Hx Arrhythmias: No Hx Chest Pain: No Hx Coronary Artery / Peripheral Vascular Disease: No Hx CHF / Valvular Disease: No Hx Palpitations: No - Pulmonary History Hx COPD: No Hx Asthma/Reactive Airway Disease: Yes Hx Recent Upper Respiratory Infection: No Hx Oxygen in Use at Home: No O2 in Use at Home (L/minute): 2 Hx Sleep Apnea: Yes Sleep Apnea Screening Result - Last Documented: Positive Pulmonary History Comment: asthma worse with activity and dust exposure - Neurologic History Hx Cerebrovascular Accident: No Hx Seizures: No Hx Dementia: No - Endocrine History Hx Diabetes: No Obesity: moderate Endocrine History Comment: pre diabetic - Renal History Hx Renal Disorders: No - Liver History Hx Hepatic Disorders: No - Neurological & Psychiatric Hx Hx Neurological and Psychiatric Disorders: Yes Neurological / Psychiatric History Comment: bipolar , depression& anxiety - Cancer History Hx Cancer: Yes Cancer History Comment: colon cancer with mets to liver - Congenital Disorder History Hx Congenital Disorders: No - GI History Hx Gastrointestinal Disorders: No - Chronic Pain History Chronic Pain: No - Surgical History Prior Surgeries: as had inguinal hernia repair. as infant had soft palate repair ANE Review of Systems Review of Systems: - Exercise capacity Exercise capacity: >=4 METS ANE Patient History - Allergies Allergies/Adverse Reactions: No Known Allergies Allergy (Unverified 12/21/17 12:59) - Home Medications Home medications: home medication list seen and reviewed Home Medications: lamoTRIgine [LamICTAL 100 MG (*)] 200 mg PO DAILY #0 02/15/11 [Last Taken ] Citalopram Hydrobromide [Celexa] 40 mg PO DAILY #0 07/31/16 [Last Taken 02/02/18 ] Dextroamphetamine/Amphetamine [Adderall Xr 30 mg Capsule] 30 mg PO DAILY #0 05/10 [Last Taken 01/31/18] Albuterol [Proventil Inhaler HFA (*)] 2 puffs IH Q4 PRN 12/21/17 [Last Taken Unknown] Dextroamphetamine/Amphetamine [Adderall 5 mg Tablet] 5 - 10 mg PO DAILY PRN [Last Taken Unknown] Fluticasone/Salmeter 250/50Mcg [Advair 250/50 (*)] 1 puffs IH BID 12/21/17 [ Last Taken 02/02/18] Prochlorperazine Maleate [Compazine 10mg (*)] 10 mg PO Q6H PRN 12/21/17 [Last Taken 12/21/17] Cetirizine [ZyrTEC 10 mg (*)] 10 mg PO DAILY PRN 02/02/18 [Last Taken Unknown] - NPO status NPO Since - Liquids (Date): 02/02/18 NPO Since - Liquids (Time): 23:59 NPO Since - Solids (Date): 02/02/18 NPO Since - Solids (Time): 23:59 - Anes Hx Anes Hx: no prior problems - Smoking Hx Smoking Status: Never smoked - Alcohol Use Alcohol Use: Occasionally - Family Anes Hx Family Anes Hx: none Family Hx Anesthesia Complications: none ANE Labs/Vital Signs - Labs Result Diagrams: 02/03/18 06:11 02/03/18 06:11 - Vital Signs Blood Pressure: 144/77 Heart Rate: 73 Respiratory Rate: 14 O2 Sat (%): 93 Height: 190.5 cm Weight: 135.256 kg ANE Physical Exam - Airway Neck exam: FROM, increased neck circumference, short neck Mallampati Score: Class 2 Mouth exam: normal dental/mouth exam, john - Pulmonary Pulmonary: no respiratory distress, clear to auscultation - Cardiovascular Cardiovascular: regular rate and rhythym, no murmur, rub, or gallop - ASA Status ASA Status: III ANE Anesthesia Plan Anesthesia Plan: general endotracheal anesthesia Regional Anesthesia: single shot NB, TAP block
[2018-02-03] MEDS ORDERED: MIDAZOLAM 2 MG/2 ML VIAL IVP ONE (13:35)
[2018-02-03] MEDS ORDERED: BUPIVACAINE 0.5% 10 ML SDV ONE ×2 (13:35)
[2018-02-03] MEDS ORDERED: PROPOFOL 200 MG/20 ML VIAL ONE ×2 (13:45)
[2018-02-03] MEDS ORDERED: fentaNYL 100 MCG/2 ML INJ ONE ×2 (13:45→16:46)
[2018-02-03] MEDS ORDERED: LIDOCAINE 2% 100 MG/5 ML SYR ONE (13:45)
[2018-02-03] MEDS ORDERED: ROCURONIUM 50 MG/5 ML VIAL ONE ×2 (13:45→14:42)
[2018-02-03] MEDS ORDERED: DEXAMETHASONE 4 MG/ML VIAL ONE (14:17)
[2018-02-03] MEDS ORDERED: ONDANSETRON 4 MG/2 ML VIAL ONE (14:17)
--- NOTE | 2018-02-03 15:09 | ASMTCMCOM ---
CM Note CM Note Notes: Pt has been admitted with abdominal pain, n/v. Hx met colon CA, ADHD, asthma. He completed his last chemo tx 02/01 at [facility]; his oncologist is Dr Stone. He is currently on IV Invanz. Contact Leia Magana [phone] for d/c plan of care if assistance needed. CM will follow for any d/c needs. Date Signed: 02/03/2018 03:08 PM Electronically Signed By:ELSI Lazcano
[2018-02-03] MEDS ORDERED: HYDROmorphONE/DILAUDID 2 MG/ML INJ ONE ×2 (16:12→17:11)
[2018-02-03] MEDS ORDERED: PROMETHAZINE HCL 25 MG/ML INJ IVP PRN (16:35)
[2018-02-03] MEDS ORDERED: ONDANSETRON 4 MG/2 ML VIAL IVP PRN (16:35)
[2018-02-03] MEDS ORDERED: ALBUTEROL 3 ML DEYVIAL IH PRN (16:35)
[2018-02-03] MEDS ORDERED: NALOXONE HCL 0.4 MG/ML INJ IVP PRN ×2 (16:35→16:51)
--- NOTE | 2018-02-03 16:36 | POSTANESTH ---
Post Anesthetic Evaluation Cardiovascular Status: Normal, Stable, Similar to Pre-Op Cond Respiratory Status: Normal, Stable, Similar to Pre-op Cond. Level of Consciousness/Mental Status: Can Participate in Eval, Alert and Oriented Pain Control: Adequate, Prn Tx Ordered Nausea/Vomiting Control: Adequate, Prn Tx Ordered Complications Possibly Related to Anesthesia: None Noted
[2018-02-03] MEDS: fentaNYL 100 MCG/2 ML INJ IVP PRN ×3 (16:48→17:04)
--- NOTE | 2018-02-03 16:56 | POSTOPPROG ---
Post Op Note Date of Operation: 02/03/18 Surgeon: Francis Richards Electrolysis Investigator: Suresh Sarmiento Anesthesiologist: Lee Jimenez Anesthesia: GET(General Endotracheal) Pre-op Diagnosis: perforated sigmoid colon cancer Post-op Diagnosis: same, with extension of drainage to retroperitoneum Procedure: ex-laparoscopy, lapartomy, sigmoid colon resection Findings: +LAD, peritoneal deposits, liver mets Inf/Abcess present in the surg proc area at time of surgery?: Yes Depth: Organ Space EBL: 50-100 Complications: none Specimen(s): to pathology
[2018-02-03] MEDS: HYDROmorphONE/DILAUDID 1 MG/ML INJ IVP PRN ×3 (17:12→17:32)
[2018-02-03] MEDS: KETOROLAC 15 MG/1 ML SDV IVP SCH ×2 (18:15→23:46)
[2018-02-03] MEDS: HYDROmorphONE/DILAUDID 6 MG/30 ML PCA IV PRN (18:34)
[2018-02-03] MEDS ORDERED: ERTAPENEM 1 GM VIAL IV SCH (21:00)
[2018-02-04] MEDS ORDERED: HYDROmorphONE/DILAUDID 2 MG/ML INJ IVP ONE (00:43)
[2018-02-04] MEDS ORDERED: LORazepam 2 MG/ML INJ IVP PRN (00:44)
[2018-02-04] MEDS: HYDROmorphONE/DILAUDID 6 MG/30 ML PCA IV PRN ×2 (01:10→07:45)
[2018-02-04] MEDS: D5W NS W/ 20 KCl/L 1,000 ML IV SCH ×4 (02:17→22:39)
[2018-02-04] MEDS: KETOROLAC 15 MG/1 ML SDV IVP SCH ×4 (05:45→23:42)
[2018-02-04] MEDS ORDERED: D5W 1/2 NS 1,000 ML IV SCH (07:45)
--- NOTE | 2018-02-04 08:39 | GCON ---
[f rep st] CONSULTATION HEMATOLOGY-ONCOLOGY CONSULTATION REASON FOR ADMISSION: Abdominal pain. RECOMMENDATIONS: Surveillance until he has recovered adequately to consider resumption of treatment. EXECUTIVE SUMMARY: The patient is a very pleasant 47-year-old gentleman with an unfortunate history of a T4 N1-N2 M1a with liver METS, sigmoid colon cancer, who has K-eusebio mutation, BRAF wild type, N-ra s wild type, and low MSI. He initially started on chemotherapy with a primary in situ, FOLFOX in Aug, and after 4 cycles, apparently had a minimal response and was switched to FOLFIRI plus Avastin. The patient has recently developed abdominal pain and was found to have some evidence of free air a nd underwent a resection. He had some posterior extension or retroperitoneal extension (I am not charline e, I was trying to understand what the patient was told) and he had a primary resection with a primar y anastomosis. He currently is recovering well. He is alert, oriented. His pain is well-managed. I reviewed his situation with him today. His last chemotherapy with FOLFIRI plus Avastin was on January 30. At that time, he received bevacizuma b 670 mg. PAST MEDICAL HISTORY: Is remarkable apparently for type 2 diabetes. He has a bipolar disorder as we ll. SOCIAL HISTORY: Reveals he has been to Jaya for some years and they have 2 children, ages 3 and 7. FAMILY HISTORY: Remarkable in that his paternal grandfather had prostate cancer at age 70, but no hi story of colon cancer, endometrial cancer. He is a nonsmoker. REVIEW OF SYSTEMS: I should mention that his MSI is low and his MMR enzymes are proficient. The darian falcon currently is recovering from surgery. He has an NG tube in place. Review of systems is otherwise not contributory at this time. PHYSICAL EXAMINATION: HEENT: He has no scleral icterus. NECK: No cervical adenopathy. LUNGS: Cl ear to P and A. GENERAL: He is alert and oriented and very pleasant and humorous. CV: S1 normal, S2 normally split. No S3, S4, murmur. ABDOMEN: Mildly distended and not particularly tender. He h as an infraumbilical midline incision. Bowel sounds are absent. EXTREMITIES: He has no extremity e blake or calf tenderness. LABORATORY: Database from [facility] reveals that he has normal electrolytes this morn ing. Glucose is 125. Hematology: A white count of 5.4, hemoglobin of 12.2, and a platelet count of 176. ASSESSMENT: Stage IV colon cancer. The patient has had a perforation, probably exacerbated by the Avastin. He has had a primary resecti on. We will have to monitor him closely for the evolution of any fistula and delayed wound healing f rom the Avastin. We will follow him along with surgery when he is discharged and he is stable, then we can consider re sumption of treatment without Avastin until he has had a long enough window, of at least 6 weeks, bef ore resuming. He has had stable disease on the current therapy. /[id number]/MODL
[2018-02-04] MEDS: NON-FORMULARY NEW DRUG (Dextroamphetamine/Amphetamine [Adderall Xr 30 Mg Capsule] 30 MG) PO SCH (08:54)
--- NOTE | 2018-02-04 10:09 | HOSPPROG ---
Hospitalist Progress Note Assessment/Plan: #abdominal pain, colon perf -s/p laparotomy with sigmoid colectomy for perforated colon cancer with extension to retroperitoneum. +visible distal peritoneal and hepatic mets c LAD. POD#1. -appreciate surgery assistance, care plan revwd with surgery today #metastatic colon cancer -tx with AVASTIN AND F0LFOX prev -primary onc Dr Stone #anemia -stable post op -follow closely NEEDS VTE PROPHY WHEN OK WTH SURGERY Dispo- > 2 mdnts for recuperation from surgery Subjective: Friend in room with his permission. Says pain OK with meds. Thirsty. No n/v/sob. Objective: Vital Signs Temp Pulse Resp BP Pulse Ox 98.1 F 65 15 111/68 94 02/04/18 07:57 02/04/18 10:00 02/04/18 10:00 02/04/18 10:00 02/04/18 10:00 Laboratory Results 02/04/18 09:12 02/04/18 09:12 02/02/18 02/03/18 02/04/18 11:59 11:59 11:59 Intake Total 1787 2597 Output Total 1100 600 Balance 687 1996 - Physical Exam Constitutional: no apparent distress Eyes: anicteric sclera Ears, Nose, Mouth, Throat: moist mucous membranes, other (NG tube in place) Cardiovascular: regular rate and rhythym, No edema Respiratory: no respiratory distress, no rales or rhonchi, clear to auscultation Gastrointestinal: other (hypoactive bowel sounds) Skin: warm Psychiatric: interacting appropriately, not anxious, not encephalopathic, thought process linear ICD10 Worksheet Patient Problems: Problems Problem Status Onset Abdominal pain Acute Colon cancer Acute Free intraperitoneal air Acute Colonic obstruction Acute
[2018-02-04] MEDS: FLUTICASONE/SALMETER 250/50MCG DISKUS IH SCH ×2 (10:18→21:19)
[2018-02-04] MEDS: lamoTRIgine 100 MG TAB PO SCH (10:36)
[2018-02-04] MEDS: CITALOPRAM 20 MG TAB PO SCH (10:36)
[2018-02-04] MEDS: ERTAPENEM 1 GM VIAL IV SCH (12:45)
--- NOTE | 2018-02-04 13:30 | GCON ---
[f rep st] CONSULTATION INPATIENT ONCOLOGY CONSULTATION DATE OF CONSULTATION: 02/03/2018 REFERRING PHYSICIAN: Usha Renee MD REASON FOR CONSULTATION: Rectal cancer with perforation. HISTORY OF PRESENT ILLNESS: The patient is a 47-year-old man with metastatic rectal cancer well known to me from my clinic. He presented in August 2017 with a nonobstructing rectosigmoid tumor which was shown to be a mucinous adenocarcinoma with a KRAS mutation. He also had multiple liver metastases and possibly some peritoneal implants. He was initially treated with 4 cycles of FOLFOX and Avastin with a result of stable disease. He was then changed to FOLFIRI, Avastin. He received his most recent cycle, #7, on , January 30. He developed some right lower quadrant pain over the weekend without nausea , vomiting, or fever. He came to the emergency department for evaluation. A CT scan showed decrease in the size of the mass, but the presence of air bubbles adjacent to it and also under the diaphragm. The liver metastases were somewhat improved. His white count was normal. He was nontoxic appearing. PAST MEDICAL HISTORY: Otherwise, unremarkable. CURRENT MEDICATIONS: Include Invanz, Dilaudid as needed, Lamictal, Celexa, Advair. ALLERGIES: He has no known drug allergies. FAMILY HISTORY: Noncontributory. SOCIAL HISTORY: He is a nonsmoker, nondrinker. Lives with his and children. 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 REVIEW OF SYSTEMS: Aside from pertinent positives noted in HPI, 14-point review of systems is negative. EXAMINATION: VITAL SIGNS: His temperature was 36.8, blood pressure 123/66, heart rate 69, oxygen saturation 94% on room air. GENERAL: He was in no acute distress. HEENT: Sclerae anicteric. Oropharynx clear. NECK: Supple without lymphadenopathy. LUNGS: Clear to auscultation bilaterally. CARDIAC: Regular rate and rhythm. No murmurs, gallops, rubs. ABDOMEN: Quiet bowel sounds. Mildly distended with some tenderness in the right lower quadrant. EXTREMITIES: Without edema. SKIN: No petechiae or purpura. NEUROLOGICAL: He was alert and oriented x3. LABORATORY DATA: White count 4.01, hemoglobin 12.2, platelets of 176. Basic metabolic panel was normal. IMPRESSION: This is a 47-year-old man with metastatic rectal cancer, currently receiving FOLFIRI and Avastin. He now presents with perforation of the primary tumor. He is relatively nontoxic appearing. I have discussed this case extensively with Dr. Richards, the surgeon production operations inspector. We agree that it would be best to resect the tumor and attempt at a primary anastomosis. The fact that he has recently received Avastin does increase the risk of an anastomotic leak or other wound healing complications, but he is at much greater risk, we feel, of developing serious intraabdominal infection, if the perforation is not sealed promptly. I will plan on discontinuing the Avastin from his regimen for the time being, though it is possible we could reconsider reinstituting it in the future. The patient understands the risks and benefits of this approach, and is willing to proceed. RECOMMENDATIONS: 1. Proceed to the operating room as described above. 2. He will need to be on prophylactic anticoagulation after his surgery. 3. Further cancer care to be determined based on the surgical result and his recovery. He does seem to be responding to this regimen, and I would plan to continue it without the Avastin. We will continue to follow the patient with you closely while he is in the hospital. /[id number]/MODL MTDD
--- NOTE | 2018-02-04 13:50 | SOAPPROG ---
SOAP Progress Note Assessment/Plan: Assessment/Plan: 47 Y M s/p laparotomy with sigmoid colectomy for perforated colon cancer with extension to retroperitoneum. +visible distal peritoneal and hepatic mets c LAD. POD#1. Afebrile. VSS. Continue IV abx for contamination. May clamp NGT. Check residual later this evening. Ice chips ok. Continue sena catheter--surgery low in pelvis. Likely dc tomorrow when pt more mobile. Leave dressing (silver impregnated). Likely change tomorrow 2/2 shadowing. S: no flatus. wants water. no n/v. pain controlled c KIER PLEATER. Has walked in hallways. O: alert, nad ncat, mmm, ng in place no wob rrr abd soft, inc well dressed, 2 cm shadowing inferiorly. rare BS 02/04/18 14:10 Objective: Vital Signs Temp Pulse Resp BP Pulse Ox 36.8 C 67 17 143/77 H 97 02/04/18 12:00 02/04/18 12:00 02/04/18 12:00 02/04/18 12:00 02/04/18 12:00 Laboratory Results 02/04/18 09:12 02/04/18 09:12 02/03/18 02/04/18 02/05/18 05:59 05:59 05:59 Intake Total 4231 8006 Output Total 1100 600 Balance 687 1996 ICD10 Worksheet Patient Problems: Problems Problem Status Onset Abdominal pain Acute Colon cancer Acute Free intraperitoneal air Acute Colonic obstruction Acute
[2018-02-05] MEDS: HYDROmorphONE/DILAUDID 6 MG/30 ML PCA IV PRN (00:34)
[2018-02-05] MEDS: D5W NS W/ 20 KCl/L 1,000 ML IV SCH ×2 (05:43→16:01)
[2018-02-05] MEDS: KETOROLAC 15 MG/1 ML SDV IVP SCH ×4 (05:43→23:55)
[2018-02-05] MEDS: lamoTRIgine 100 MG TAB PO SCH (08:38)
[2018-02-05] MEDS: CITALOPRAM 20 MG TAB PO SCH (08:38)
--- NOTE | 2018-02-05 08:54 | SOAPPROG ---
SOAP Progress Note Assessment/Plan: Assessment/Plan: 47 Y M s/p laparotomy with sigmoid colectomy for perforated colon cancer with extension to retroperitoneum. +visible distal peritoneal and hepatic mets c LAD. POD#2. D/c sena today. After confirming with Dr. Richards plan to d/c NGT today and start sips clears. Acting very conservatively with NGT to protect colonic anastomosis and healing ability could be compromised due to avastin. S: passing gas. very tired this morning. (did a lot of walking a visiting yesterday) pain controlled. no n/v. O: alert, nad ncat, mmm, ng in place no wob rrr abd soft, inc well dressed, 2 cm shadowing inferiorly. +BS 02/05/18 08:47 Objective: Vital Signs Temp Pulse Resp BP Pulse Ox 36.7 C 73 16 124/83 H 90 L 02/05/18 08:31 02/05/18 08:00 02/05/18 08:00 02/05/18 08:00 02/05/18 08:00 Laboratory Results 02/05/18 05:50 02/05/18 05:50 02/04/18 02/05/18 02/06/18 05:59 05:59 05:59 Intake Total 4340 5107.9 Output Total 637 2125 Balance 1997 2982.9 ICD10 Worksheet Patient Problems: Problems Problem Status Onset Abdominal pain Acute Colon cancer Acute Free intraperitoneal air Acute Colonic obstruction Acute
[2018-02-05] MEDS: NON-FORMULARY NEW DRUG (Dextroamphetamine/Amphetamine [Adderall Xr 30 Mg Capsule] 30 MG) PO SCH (09:57)
[2018-02-05] MEDS: FLUTICASONE/SALMETER 250/50MCG DISKUS IH SCH ×2 (10:03→20:01)
--- NOTE | 2018-02-05 12:11 | HOSPPROG ---
Hospitalist Progress Note Assessment/Plan: #abdominal pain 2/2 colon perf, s/p laparotomy with sigmoid colectomy for perforated colon cancer with extension to retroperitoneum. POD#2. +visible distal peritoneal and hepatic mets c LAD. -discussed with surgery, cont post-op care per surg -ng tube d/c'd, sips of clears #metastatic colon cancer -tx'd with AVASTIN AND F0LFOX prev, concerns with healing due to avastin -primary onc Dr Stone #anemia -stable post op -follow closely #dvt pplx - start lovenox if cleared by surg Dispo- cont inpt Subjective: Pt doing ok. +flatus, no BM. no fevers. 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 tolerating sips of clears Objective: Vital Signs Temp Pulse Resp BP Pulse Ox 36.4 C 73 16 143/78 H 91 L 02/05/18 10:14 02/05/18 10:14 02/05/18 10:14 02/05/18 10:14 02/05/18 10:14 Laboratory Results 02/05/18 05:50 02/05/18 05:50 02/04/18 02/05/18 02/06/18 05:59 05:59 05:59 Intake Total 2597 5107.9 Output Total 600 2125 Balance 1996 2982.9 - Physical Exam Constitutional: no apparent distress Eyes: PERRL Ears, Nose, Mouth, Throat: moist mucous membranes Cardiovascular: regular rate and rhythym Respiratory: no respiratory distress Gastrointestinal: normoactive bowel sounds, tenderness, other (soft, incision / bandage c/d/i, appropriately tender, no r/r/g or peritoneal signs) Skin: warm Musculoskeletal: full muscle strength Neurologic: AAOx3 Psychiatric: interacting appropriately ICD10 Worksheet Patient Problems: Problems Problem Status Onset Abdominal pain Acute Colon cancer Acute Free intraperitoneal air Acute Colonic obstruction Acute
[2018-02-05] MEDS: ERTAPENEM 1 GM VIAL IV SCH (13:03)
--- NOTE | 2018-02-05 13:03 | SOAPPROG ---
SOAP Progress Note Assessment/Plan: Assessment: 1. Metastatic colon cancer: T4 N2 M1 (liver and peritoneal mets). Some peritoneal mets were seen at surgery. He is on second line Rx with FOLFIRI. He is KRAS mutaant, BRAF WT, NRAS WT, and MSI stable. Therapy is palliative. 2. Colon resection: So far so good. He feels well. BS present. Plan: Overall resume chemo WO Avastin in a few weeks once cleared by surgery 02/05/18 12:59 Subjective: He is recovering nicely from surgery. He has the expected amount of incisional pain. He is still NPO. This is POD2 Objective: Vital Signs Temp Pulse Resp BP Pulse Ox 36.9 C 74 16 154/89 H 90 L 02/05/18 12:30 02/05/18 12:30 02/05/18 12:30 02/05/18 12:30 02/05/18 12:30 Laboratory Results 02/05/18 05:50 02/05/18 05:50 02/04/18 02/05/18 02/06/18 05:59 05:59 05:59 Intake Total 2597 5107.9 Output Total 600 2125 Balance 1996 2982.9 Alert looks good Lungs clear CVS reg Abd: + BS ICD10 Worksheet Patient Problems: Problems Problem Status Onset Colonic obstruction Acute Colon cancer Acute Abdominal pain Acute Free intraperitoneal air Acute
[2018-02-05] MEDS: ENOXAPARIN 40 MG/0.4 ML SYR SC SCH (17:52)
[2018-02-06] MEDS: D5W NS W/ 20 KCl/L 1,000 ML IV SCH ×2 (02:40→23:11)
[2018-02-06] MEDS: KETOROLAC 15 MG/1 ML SDV IVP SCH ×4 (05:25→23:09)
[2018-02-06] MEDS: FLUTICASONE/SALMETER 250/50MCG DISKUS IH SCH ×2 (09:30→21:25)
[2018-02-06] MEDS: lamoTRIgine 100 MG TAB PO SCH (09:33)
[2018-02-06] MEDS: ENOXAPARIN 40 MG/0.4 ML SYR SC SCH (09:33)
[2018-02-06] MEDS: CITALOPRAM 20 MG TAB PO SCH (09:33)
[2018-02-06] MEDS: NON-FORMULARY NEW DRUG (Dextroamphetamine/Amphetamine [Adderall Xr 30 Mg Capsule] 30 MG) PO SCH (09:35)
--- NOTE | 2018-02-06 11:18 | SOAPPROG ---
SOAP Progress Note Assessment/Plan: Assessment: 1. Metastatic colon cancer: T4 N2 M1 (liver and peritoneal mets). Some peritoneal mets were seen at surgery and direct invasion by the primary. He is on second line Rx with FOLFIRI. He is KRAS mutaant, BRAF WT, NRAS WT, and MSI stable. Therapy is palliative. 2. Colon resection: So far so good. POD3 progressing well. Plan: Overall resume chemo WO Avastin in a few weeks once cleared by surgery 02/05/18 12:59 02/06/18 11:16 Subjective: He is with his this morning. Overall doing well. Passing gas and taking sips. Objective: Vital Signs Temp Pulse Resp BP Pulse Ox 36.4 C 74 14 128/81 H 98 02/06/18 08:29 02/06/18 09:35 02/06/18 09:35 02/06/18 08:29 02/06/18 09:35 Laboratory Results 02/06/18 05:15 02/05/18 05:50 02/05/18 02/06/18 02/07/18 05:59 05:59 05:59 Intake Total 5107.9 2371 Output Total 2125 1740 Balance 2982.9 631 + BS - Time Spent With Patient Time Spent With Patient: 15 min ICD10 Worksheet Patient Problems: Problems Problem Status Onset Colonic obstruction Acute Colon cancer Acute Abdominal pain Acute Free intraperitoneal air Acute
[2018-02-06] MEDS: ERTAPENEM 1 GM VIAL IV SCH (12:32)
--- NOTE | 2018-02-06 15:33 | HOSPPROG ---
Hospitalist Progress Note Assessment/Plan: #colon perforation, s/p laparotomy with sigmoid colectomy for perforated colon cancer with extension to retroperitoneum. POD#3. +visible distal peritoneal and hepatic mets c LAD. -cont post-op care per surg -ng tube d/c'd, remains NPO with sips of water -advance diet per surgery #metastatic colon cancer -tx'd with AVASTIN AND F0LFOX prev, concerns with healing due to avastin -plan to resume chemo without avastin in a few weeks -palliative care consult today -primary onc Dr Stone #anemia -stable post op -follow closely #dvt pplx - lovenox Dispo- cont inpt Subjective: Pt tearful today, realizing with peritoneal mets, surgical resection not possible. No fevers. Pain fairly well controlled. Still NPO. + flatus, no BM. Objective: Vital Signs Temp Pulse Resp BP Pulse Ox 36.8 C 71 18 150/88 H 96 02/06/18 11:23 02/06/18 11:23 02/06/18 11:23 02/06/18 11:23 02/06/18 11:23 Laboratory Results 02/06/18 05:15 02/05/18 05:50 02/05/18 02/06/18 02/07/18 05:59 05:59 05:59 Intake Total 5107.9 2371 Output Total 2125 1740 Balance 2982.9 631 - Physical Exam Constitutional: no apparent distress Eyes: PERRL Ears, Nose, Mouth, Throat: moist mucous membranes Cardiovascular: regular rate and rhythym Respiratory: no respiratory distress Gastrointestinal: normoactive bowel sounds, soft, non-tender abdomen Skin: warm Musculoskeletal: full muscle strength Neurologic: AAOx3 Psychiatric: interacting appropriately ICD10 Worksheet Patient Problems: Problems Problem Status Onset Abdominal pain Acute Colon cancer Acute Free intraperitoneal air Acute Colonic obstruction Acute
[2018-02-07] MEDS: KETOROLAC 15 MG/1 ML SDV IVP SCH ×2 (04:50→12:32)
[2018-02-07] MEDS: D5W NS W/ 20 KCl/L 1,000 ML IV SCH ×2 (04:50→11:35)
[2018-02-07] MEDS: HYDROmorphONE/DILAUDID 6 MG/30 ML PCA IV PRN (04:52)
[2018-02-07 06:13] VITALS: RESP 18
[2018-02-07] MEDS: FLUTICASONE/SALMETER 250/50MCG DISKUS IH SCH ×2 (08:04→22:49)
[2018-02-07] MEDS: ENOXAPARIN 40 MG/0.4 ML SYR SC SCH (09:26)
[2018-02-07] MEDS: lamoTRIgine 100 MG TAB PO SCH (09:29)
[2018-02-07] MEDS: CITALOPRAM 20 MG TAB PO SCH (09:29)
--- NOTE | 2018-02-07 10:31 | SOAPPROG ---
SOAP Progress Note Assessment/Plan: Assessment: 1. Metastatic colon cancer: T4 N2 M1 (liver and peritoneal mets). Some peritoneal mets were seen at surgery and direct invasion by the primary. He is on second line Rx with FOLFIRI. He is KRAS mutaant, BRAF WT, NRAS WT, and MSI stable. Therapy is palliative. Path is T4b N1 M1. It looks like the FOLFIRI is working. He can resume WO Avastin when surgery says its ok probably in 2 weeks or so 2. Colon resection: So far so good. POD4. progressing well. Plan: Overall resume chemo WO Avastin in a few weeks once cleared by surgery 02/05/18 12:59 02/06/18 11:16 02/07/18 10:29 Subjective: Passing gas. No fever or N/V Objective: Vital Signs Temp Pulse Resp BP Pulse Ox 36.5 C 69 18 129/86 H 96 02/07/18 08:00 02/07/18 08:00 02/07/18 08:00 02/07/18 08:00 02/07/18 08:00 Laboratory Results 02/06/18 05:15 02/05/18 05:50 02/06/18 02/07/18 02/08/18 05:59 05:59 05:59 Intake Total 2371 2865 Output Total 1740 400 Balance 631 2465 ICD10 Worksheet Patient Problems: Problems Problem Status Onset Colonic obstruction Acute Colon cancer Acute Abdominal pain Acute Free intraperitoneal air Acute
--- NOTE | 2018-02-07 12:07 | SOAPPROG ---
SOAP Progress Note Assessment/Plan: Assessment: Assessment/Plan: 47 Y M s/p laparotomy with sigmoid colectomy for perforated colon cancer with extension to retroperitoneum. +visible distal peritoneal and hepatic mets c LAD. S: Passing flatus and BMs. Eager to start eating a regular diet. Also eager to go home. O: Afebrile. VSS. Chest: CTA bilaterally Cardiac: RRR Abdomen: soft, nontender, normoactive bowel sounds. Plan: Advance diet. Likely home later today. 02/07/18 12:05 Objective: Vital Signs Temp Pulse Resp BP Pulse Ox 36.5 C 74 18 128/74 H 94 02/07/18 08:00 02/07/18 10:35 02/07/18 10:35 02/07/18 10:35 02/07/18 10:35 Laboratory Results 02/06/18 05:15 02/05/18 05:50 02/06/18 02/07/18 02/08/18 05:59 05:59 05:59 Intake Total 0478 7484 Output Total 4460 400 Balance 631 2465 ICD10 Worksheet Patient Problems: Problems Problem Status Onset Abdominal pain Acute Colon cancer Acute Free intraperitoneal air Acute Colonic obstruction Acute
[2018-02-07] MEDS: ERTAPENEM 1 GM VIAL IV SCH (12:32)
[2018-02-07] MEDS: NON-FORMULARY NEW DRUG (Dextroamphetamine/Amphetamine [Adderall Xr 30 Mg Capsule] 30 MG) PO SCH (12:42)
--- NOTE | 2018-02-07 13:28 | HOSPPROG ---
Hospitalist Progress Note Assessment/Plan: #colon perforation, s/p laparotomy with sigmoid colectomy for perforated colon cancer with extension to retroperitoneum. POD#4. Recovering very well. Ambulating, eating, having BM's. +visible distal peritoneal and hepatic mets c LAD. 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 -s/p 4 days of Toradol -no weakness on exam and strength intact -PT eval requested -outpt f/u #dvt pplx - lovenox Dispo- cont inpt, possible d/c in am if tolerating po. Subjective: Doing well. +BM, no significant pain or or nausea. Tolerating po. Advanced to regular diet today. Reports left 4th-5th toe numbness. Objective: Vital Signs Temp Pulse Resp BP Pulse Ox 36.6 C 69 18 151/93 H 99 02/07/18 13:10 02/07/18 13:10 02/07/18 13:10 02/07/18 13:10 02/07/18 13:10 Laboratory Results 02/06/18 05:15 02/05/18 05:50 02/06/18 02/07/18 02/08/18 05:59 05:59 05:59 Intake Total 7903 5258 Output Total 9665 400 Balance 631 6261 ICD10 Worksheet Patient Problems: Problems Problem Status Onset Abdominal pain Acute Colon cancer Acute Free intraperitoneal air Acute Colonic obstruction Acute
[2018-02-07] MEDS: FAMOTIDINE 20 MG TAB PO SCH ×2 (17:28→21:03)
[2018-02-08] MEDS: CITALOPRAM 20 MG TAB PO SCH (08:49)
[2018-02-08] MEDS: FAMOTIDINE 20 MG TAB PO SCH (08:49)
[2018-02-08] MEDS: lamoTRIgine 100 MG TAB PO SCH (08:49)
[2018-02-08] MEDS: ENOXAPARIN 40 MG/0.4 ML SYR SC SCH (08:50)
[2018-02-08] MEDS: NON-FORMULARY NEW DRUG (Dextroamphetamine/Amphetamine [Adderall Xr 30 Mg Capsule] 30 MG) PO SCH (08:53)
[2018-02-08] MEDS: FLUTICASONE/SALMETER 250/50MCG DISKUS IH SCH (08:53)
[2018-02-08] MEDS: ERTAPENEM 1 GM VIAL IV SCH (11:55)
[2018-02-08 13:25] VITALS: BP 131/80; PULSE 77; TEMP 97.9; O2SAT 95
--- NOTE | 2018-02-08 14:23 | HOSPPROG ---
Hospitalist Progress Note Assessment/Plan: DIAGNOSES: -stage IV colon cancer mostly recently being treated with chemotherapy plus Avastin -spontaneous perforation of colon cancer -status post partial sigmoid colectomy and drainage of abscess involving open laparotomy -postoperative ileus resolving well -expected postoperative anemia -sciatica due to disc disease, currently well controlled PLANS: Continue routine postoperative care at this time Continue diet as tolerated, encourage patient to eat very slowly Will review with surgery as they round, from an internal medicine standpoint would be okay for discharge today; will see how surgery feels about his anastomosis and his recent Avastin therapy SUBJECTIVE: Feels reasonably good overall, occasional very brief cramp in his abdomen but otherwise no pain Eating solid food without difficulty so far Flatus, has not had a stool today yet OBJECTIVE Vitals reviewed: Stable without fever Exam: alert oriented skin warm dry color ok resps not labored lungs clear BSs heart regular abd incision line looks excellent, all stable still in place; otherwise soft nondistended nontender, bowel sounds present limbs warm, no edema iv site ok Laboratory data: Stable basic metabolic panel Tumor marker studies still pending Objective: Vital Signs Temp Pulse Resp BP Pulse Ox 36.6 C 77 18 131/80 H 95 02/08/18 13:22 02/08/18 13:22 02/08/18 13:22 02/08/18 13:22 02/08/18 13:22 Laboratory Results 02/06/18 05:15 02/08/18 05:28 02/07/18 02/08/18 02/09/18 06:59 06:59 06:59 Intake Total 2865 1200 Output Total 400 Balance 2465 1200 ICD10 Worksheet Patient Problems: Problems Problem Status Onset Abdominal pain Acute Colon cancer Acute Free intraperitoneal air Acute Colonic obstruction Acute
--- NOTE | 2018-02-08 14:35 | PDDCSUM ---
Discharge Summary Discharge Summary: DISCHARGE DIAGNOSES: -stage IV colon cancer mostly recently being treated with chemotherapy plus Avastin -spontaneous perforation of colon cancer -status post partial sigmoid colectomy and drainage of abscess involving open laparotomy -postoperative ileus resolving well -expected postoperative anemia -sciatica due to disc disease, currently well controlled CONSULTANTS: Dr. Francis Richards CT scan of abdomen PROCEDURES: Laparoscopy converted to open laparotomy, with partial sigmoid colectomy and abscess drainage HOSPITAL COURSE SUMMARY: This patient with known colon cancer receiving chemotherapy and a vast in the last dose of Avastin 1 week before admission presented to the hospital with abdominal pain fever was found have perforation of the colon at his tumor site. There was extension of infectious process into the retroperitoneal space. The patient was admitted the hospital and started on empiric antibiotics. After discussion between the surgery consultants and the patient was elected to proceed with surgical repair. He underwent initially a laparoscopy which was converted to open laparotomy and he had partial sigmoid resection and evacuation of infected material. Postoperatively he had some expected ileus but otherwise recovered very nicely. At this time he has had bowel movements, is eating without difficulty is up walking well, no sign of any respiratory infections. There is nothing to indicate any abscess or any problems with the anastomosis at this point. He is overall stable for discharge to home. His wound looks excellent on examination today hossein are still in place. Due to the perforation and infectious process the patient will be continued on oral antibiotics going home. He has received specific instructions from the surgery team regarding activity restrictions, diet, wound care, warning signs. PENDING TEST RESULTS: Pathology results MEDICATION CHANGES: Addition of Augmentin 875 mg twice daily for 1 week FOLLOW-UP PLAN: With Dr. Richards next week Greater than 35 minutes bedside and care coordination time today
--- NOTE | 2018-02-08 15:00 | ASDISCHSUM ---
Discharge Information Plan Status:Home with No Needs Medically Cleared to Leave:02/08/2018 Discharge Date:02/08/2018 CM D/C Disposition:Home, Routine, Self-Care ADT D/C Disposition:Home, Routine, Self-Care Projected Discharge Date:02/08/2018 Transportation at D/C:Family Discharge Delay Reason: Follow-Up Date:02/08/2018 Discharge Slot: Final Diagnosis: Placement Information Patient Contact Information Contact Name:JESSIE Relationship: Address:[address] [place] [address] City:[place] Alternate Phone: [facility]/Zip Code:[place] [address] Email: Financial Information Financial Class:HMO and PPO Plans Primary Plan Desc:JACQUELINE Primary Plan Number:[id number] Secondary Plan Desc: Secondary Plan Number: Assessment Information BC CM Progress Note CM Note CM Note Notes: Pt has been admitted with abdominal pain, n/v. Hx met colon CA, ADHD, asthma. He completed his last chemo tx 02/01 at [facility]; his oncologist is Dr Stone. He is currently on [facility]. Contact Leia Magana [phone] for d/c plan of care if assistance needed. CM will follow for any d/c needs. Date Signed: 02/03/2018 03:08 PM Electronically Signed By:ELSI Lazcano Case Management Discharge Plan Note Case Management Discharge Discharge Order Complete? Answers: Yes Patient to Obtain Answers: via Family Medications Transportation Arranged Answers: Family/Friends Family Notified Answers: Yes Discharge Comments Notes: Pt is discharging home with his family and no CM needs. They are not interested in pursuing an outpatient palliative care consult at this time. Pt to f/u with oncologist for ongoing care. Date Signed: 02/08/2018 02:58 PM Electronically Signed By:ELSI Lazcano Intervention Information
--- NOTE | 2018-02-08 15:01 | ASMTLACE ---
LACE Length of stay for Answers: 4-6 days current admission Acuity / Level of Answers: Yes Care: Did the patient have an inpatient admission? Comorbidities - select Answers: Any tumor (including all that apply lymphoma or leukemia) Other Notes: ADHD # of Emergency department Answers: 3-4 visits in the last 6 months Score: 13 Date Signed: 02/08/2018 03:00 PM Electronically Signed By:ELSI Lazcano
--- NOTE | 2018-02-08 15:07 | SOAPPROG ---
SOAP Progress Note Assessment/Plan: Assessment: s/p partial colectomy with anastomosis for perforated colon cancer recently had avastin Doing well DC home. 1 week po abx F/U dr mims in 1-2 weeks S: Feeling well. Tolerating diet. 3 bm O: Incision cdi. Abdomen soft Plan: 02/08/18 15:05 Objective: Vital Signs Temp Pulse Resp BP Pulse Ox 36.6 C 77 18 131/80 H 95 02/08/18 13:22 02/08/18 13:22 02/08/18 13:22 02/08/18 13:22 02/08/18 13:22 Laboratory Results 02/06/18 05:15 02/08/18 05:28 02/07/18 02/08/18 02/09/18 05:59 05:59 05:59 Intake Total 2865 1200 Output Total 400 Balance 2465 1200 ICD10 Worksheet Patient Problems: Problems Problem Status Onset Abdominal pain Acute Colon cancer Acute Colonic obstruction Acute Free intraperitoneal air Acute
== END 2018-02-08 15:03 | disposition home or self-care (01) | DRG 330 ==
LOC: OBSVTOIN 22:23 → F1N 23:21
PROVIDERS: ADMIT Hospitalist; ATTEND Internal Medicine
DX: K63.1 Perforation of intestine (nontraumatic) (principal); C18.7 Malignant neoplasm of sigmoid colon; C78.7 Secondary malignant neoplasm of liver and intrahepatic bile duct; C78.6 Secondary malignant neoplasm of retroperitoneum and peritoneum; D64.9 Anemia, unspecified; J45.909 Unspecified asthma, uncomplicated; R73.03 Prediabetes; E66.9 Obesity, unspecified; F90.9 Attention-deficit hyperactivity disorder, unspecified type; M51.17 Intervertebral disc disorders with radiculopathy, lumbosacral region; J44.9 Chronic obstructive pulmonary disease, unspecified; E11.9 Type 2 diabetes mellitus without complications; F31.9 Bipolar disorder, unspecified
CPT/HCPCS: 82947-QW; 96374; J1100; J1170; J1335; J1642; J1650; J1885; J2001; J2250; J2405; J2704; J3010; Q9967

== ENCOUNTER 2018-05-08 23:53 | Observation (INO) | payer OTHER ==
[2018-05-09] MEDS ORDERED: HYDROmorphONE/DILAUDID 2 MG/ML INJ IVP ONE (00:09)
[2018-05-09] MEDS ORDERED: NS 1,000 ML IV ONE (00:09)
[2018-05-09] MEDS ORDERED: PROMETHAZINE HCL 25 MG/ML INJ IVP ONE (00:10)
--- NOTE | 2018-05-09 00:10 | EDPHY ---
H & P Stated Complaint: abd pain-NV-hx of perf asnd colon CA Time Seen by Provider: 05/09/18 00:10 HPI/ROS: HPI CHIEF COMPLAINT: Abdominal pain, nausea, vomiting HISTORY OF PRESENT ILLNESS: Patient is a 47-year-old male, he has a history of stage IV colon cancer currently undergoing chemotherapy, right-sided chest port , presents emergency room with lower abdominal pain that started early yesterday morning. It has been persistent throughout the day and got worse this evening. He has had dry heaving with nausea and some vomiting. Denies diarrhea. Did have 2 bowel movements that were normal. Describes pain is lower abdomen. He states it does track up to his upper abdomen at times. Achy sensation. He states he feels similar to his bowel perforation he has had before. Endorses chills. No recorded fever. Denies chest pain or shortness of breath or productive cough. Past Medical History: Stage IV colon cancer, colonic perforation, postoperative ileus, sciatica Past Surgical History: Colorectal cancer, bowel perforation Social History: Denies drugs alcohol tobacco. Family History: Dr. Stone is his oncologist ROS REVIEW OF SYSTEMS: A comprehensive 10 point review of systems is otherwise negative aside from elements mentioned in the history of present illness. Exam Constitutional triage nursing summary reviewed, vital signs reviewed, awake/ alert. Eyes normal conjunctivae and sclera, EOMI, PERRLA. HENT normal inspection, atraumatic, moist mucus membranes, no epistaxis, neck supple/ no meningismus, no raccoon eyes. Respiratory clear to auscultation bilaterally, normal breath sounds, no respiratory distress, no wheezing. Cardiovascular rate normal, regular rhythm, no murmur, no edema, distal pulses normal. Gastrointestinal mild tender palpation, diffusely, no peritoneal signs, protuberant abdomen, no rebound, no guarding, normal bowel sounds, no distension, no pulsatile mass. Genitourinary no CVA tenderness. Musculoskeletal no midline vertebral tenderness, full range of motion, no calf swelling, no tenderness of extremities, no meningismus, good pulses, neurovascularly intact. Skin pink, warm, & dry, no rash, skin atraumatic. Neurologic awake, alert and oriented x 3, AAOx3, moves all 4 extremities equally, motor intact, sensory intact, CN II-XII intact, normal cerebellar, normal vision, normal speech. Psychiatric normal mood/affect. Heme/Lymph/Immune no lymphadenopathy. Differential diagnosis includes but is not limited to and in no particular order : Bowel obstruction, appendicitis, gallbladder disease, diverticulitis, colitis , enteritis, perforated viscus, gastritis, GERD, esophagitis, urinary tract infection, pyelonephritis, kidney stones Medical Decision Making: Plan for this patient IV establishment with IV fluid bolus, 0.5 mg IV Dilaudid for pain control, 4 mg IV Zofran for nausea, proceed with CT scan abdomen pelvis with IV contrast rule out perforation or bowel obstruction or ileus. Re-evaluation: CT scan abdomen pelvis with IV contrast shows worsening hepatic metastatic disease, mental caking, small volume ascites, worse from previous CT scan. No free air no evidence of obstruction no bowel perforation. Called to me by Dr. Benjie Alva. 0151: Discussed the case with the patient. Discussed the CT scan results. Recommend hospital admission for pain control and IV fluids in for oncology to see. Spoke with the hospitalist service Dr. Enrique who agrees to admit the patient. Dr. Stone oncology will be consult in the morning. Source: Patient - Personal History Current Tetanus Diphtheria and Acellular Pertussis (TDAP): Yes Tetanus Vaccine Date: < 10 years - Medical/Surgical History Hx Asthma: Yes Hx Chronic Respiratory Disease: Yes Hx Diabetes: No Hx Cardiac Disease: No Hx Renal Disease: No Hx Cirrhosis: No Hx Alcoholism: No Hx HIV/AIDS: No Hx Splenectomy or Spleen Trauma: No Other PMH: PMHx: asthma, bipolar II, COPD, MOLINA, metastatic colon CA. PSHx: palate repair, ear tubes - Social History Smoking Status: Never smoked Constitutional: Initial Vital Signs Temperature (C) 37.3 C 05/09/18 00:00 Heart Rate 94 05/09/18 00:00 Respiratory Rate 16 05/09/18 00:00 Blood Pressure 144/95 H 05/09/18 00:00 O2 Sat (%) 96 05/09/18 00:00 O2 Delivery Mode Room Air O2 (L/minute) 2 Allergies/Adverse Reactions: No Known Allergies Allergy (Verified 05/09/18 08:41) Home Medications: Medication Instructions Recorded lamoTRIgine [LamICTAL 100 MG (*)] 200 mg PO DAILY #0 02/15/11 Albuterol [Proventil Inhaler HFA 2 puffs IH Q4 PRN 12/21/17 (*)] Fluticasone/Salmeter 250/50Mcg 1 puffs IH BID 12/21/17 [Advair 250/50 (*)] Prochlorperazine Maleate 10 mg PO Q6H PRN 12/21/17 [Compazine 10mg (*)] Cetirizine [ZyrTEC 10 mg (*)] 10 mg PO DAILY PRN 02/02/18 Escitalopram Oxalate [Lexapro] 20 mg PO DAILY 05/09/18 Medical Decision Making - Data Points Laboratory Results: Laboratory Results 05/09/18 00:30 05/09/18 00:30 Medications Given: Discontinued Medications Acetaminophen (Tylenol) 650 mg PO Q4HRS PRN PRN Reason: Pain, Mild/Fever, Can Take PO Stop: 11/05/18 02:21 Last Admin: 05/09/18 13:58 Dose: 650 mg Escitalopram Oxalate (Lexapro) 20 mg PO DAILY CEM Stop: 11/05/18 08:59 Last Admin: 05/09/18 11:29 Dose: 20 mg Hydromorphone HCl (Dilaudid) 0.5 mg IVP EDNOW ONE Stop: 05/09/18 00:10 Last Admin: 05/09/18 00:34 Dose: 0.5 mg Sodium Chloride (Ns) 1,000 mls @ 0 mls/hr IV EDNOW ONE; Wide Open PRN Reason: Protocol Stop: 05/09/18 00:10 Last Admin: 05/09/18 00:35 Dose: 1,000 mls Sodium Chloride (Ns) 1,000 mls @ 75 mls/hr IV CONT CEM Stop: 11/05/18 02:59 Last Admin: 05/09/18 13:41 Dose: 1,000 mls Lamotrigine (Lamictal) 200 mg PO DAILY CEM Stop: 11/05/18 11:14 Last Admin: 05/09/18 11:29 Dose: 200 mg Promethazine HCl (Phenergan) 6.25 mg IVP ONCE ONE Stop: 05/09/18 00:11 Last Admin: 05/09/18 00:34 Dose: 6.25 mg Departure - Departure Disposition: [facility] Acute Clinical Impression: Abdominal pain Qualifiers: Abdominal location: generalized Qualified Code(s): R10.84 - Generalized abdominal pain Colon cancer Qualifiers: Colon location: unspecified part of colon Qualified Code(s): C18.9 - Malignant neoplasm of colon, unspecified Condition: Fair
[2018-05-09] MEDS ORDERED: HYDROmorphONE/DILAUDID 1 MG/ML INJ ONE (00:31)
[2018-05-09 00:50] LABS: PLATELET COUNT 256 10^3/uL (150-400)
[2018-05-09 00:53] LABS: INR 1.1 (0.83-1.16); PROTIME(PATIENT) 14.4 SEC (12.0-15.0)
[2018-05-09] MEDS ORDERED: IOPAMIDOL (ISOVUE-300) 100 ML BTL ONE (00:57)
[2018-05-09] MEDS ORDERED: ONDANSETRON 4 MG/2 ML VIAL IVP PRN (02:22)
[2018-05-09] MEDS ORDERED: ACETAMINOPHEN 325 MG TAB PO PRN (02:22)
[2018-05-09] MEDS ORDERED: PROMETHAZINE HCL 25 MG/ML INJ IVP PRN (02:22)
[2018-05-09] MEDS ORDERED: LORazepam 0.5 MG TAB PO PRN (02:22)
[2018-05-09] MEDS ORDERED: HYDROCODONE/APAP 10/325 TAB PO PRN (02:25)
[2018-05-09] MEDS ORDERED: HYDROCODONE/APAP 5/325 TAB PO PRN (02:25)
[2018-05-09] MEDS: NS 1,000 ML IV SCH ×2 (03:13→13:41)
--- NOTE | 2018-05-09 06:03 | GHP ---
[f rep st] HISTORY AND PHYSICAL DATE OF ADMISSION: 05/09/2018 PCP: Dot Gustafson MD. SOURCE: Patient provides some of the history. He is a little somnolent at this time after receiving Phenergan and Dilaudid in the emergency department. He is also fatigued and sleeping with a CPAP in place. EMR was reviewed and case discussed with ED provider. CHIEF COMPLAINT: Abdominal pain, nausea, vomiting. HISTORY OF PRESENT ILLNESS: This is a very pleasant 47-year-old gentleman with a diagnosis of stage IV colon cancer undergoing palliative chemotherapy who presents to the emergency department with complaints of 1-day history of severe abdominal pain, cramping, nausea, and vomiting. Patient had some chills at home but no fever. The patient denies any hematemesis. No diarrhea. Abdominal pain was noted to be diffuse, cramping in nature. Patient did have 2 bowel movements in the daytime which were normal. No melena or hematochezia. No sick contacts. No exposures. The patient's last chemo treatment was 2 days ago. REVIEW OF SYSTEMS: Negative except as noted above. ALLERGIES: No known drug allergies. HOME MEDICATIONS: Lamictal 200 mg p.o. daily, Compazine 10 mg p.o. q.6 hours p.r.n., Advair 250/50 one puff inhaled twice daily, citalopram 40 mg p.o. daily , cetirizine 10 mg p.o. daily p.r.n., albuterol HFA 2 puffs inhaled q.4 hours p.r.n. PAST MEDICAL HISTORY: Significant for asthma, bipolar disorder, attention deficit hyperactivity disorder, COPD, MOLINA, metastatic colon cancer, prediabetes , obesity with BMI currently of 35.5. PAST SURGICAL HISTORY: Significant for palate repair, tympanostomy tubes, exploratory laparotomy for a bowel perforation status post sigmoid colon resection and reanastomosis. FAMILY HISTORY: Diabetes type 2, CAD with hypertension, prostate cancer. SOCIAL HISTORY: Patient is , lives with his children. He does not smoke , drink, or do drugs. 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 CODE STATUS: Full based on previous admission, but unable to further discuss with the patient as he is quite somnolent at this time. PHYSICAL EXAM: VITALS: Upon arrival to the emergency department, blood pressure 144/95, heart rate 94, respiratory rate 16, O2 saturation 96% on room air, temperature 37.3. Current vitals: Blood pressure 133/75, heart rate 64, respiratory rate 16, O2 saturation 97% on room air, temperature 36.7. GENERAL: No acute distress. The patient is lying quietly in bed asleep with CPAP in place. He is a little somnolent, but wakes to name. Answers a few yes/no questions and then falls back asleep. HEAD: Normocephalic, atraumatic. EYES: Exam limited secondary to patient's somnolence. No scleral icterus or conjunctival injection appreciated. ENT: Patient with CPAP mask in place. Mucous membranes appear slightly dry. NECK: Supple trachea midline. CV: Regular rate and rhythm. Slightly distant heart sounds. No murmurs, rubs, or gallops appreciated. RESPIRATORY: Unlabored breathing. Lungs are clear to auscultation bilaterally. No wheezes, rales, or rhonchi appreciated. ABDOMEN: Obese, soft, nontender to palpation. No rebound, guarding, or masses appreciated. : Suprapubic tenderness to palpation. No French catheter in place. EXTREMITIES: Patient without any cyanosis, clubbing, or edema. NEURO: Grossly nonfocal. Moves all extremities while lying in bed. Exam is limited secondary to patient's somnolence, however. PSYCH: Affect is slightly flat. The patient is otherwise pleasant and cooperative. LABORATORY STUDIES: WBC 8.82, hemoglobin and hematocrit 17.3 and 38.5, MCV 88.9 , platelet count 256, neutrophil percent 81.6% without any bands. PT is 14.4, INR is 1.10, PTT is 30.2. VBG lactic acid 0.8. Sodium is 139, potassium 4.1, chloride 101, CO2 29, anion gap 14, BUN 14, creatinine 0.8, GFR greater than 60 , glucose 142, total protein 7.2, albumin 4.0, total bilirubin 1.3, ALT 32, AST 22, alkaline phosphatase 82, lipase 66. CT abdomen and pelvis, image and preliminary report reviewed, significant for interim partial colectomy with progressive widespread peritoneal carcinomatosis with pronounced omental caking. New small volume perihepatic and perisplenic ascites. Marginal increase in hepatic METS. ASSESSMENT AND PLAN: This is a 47-year-old gentleman with history of metastatic colon cancer who presents to the emergency department today with complaints of abdominal pain, nausea and vomiting. 1. Abdominal pain, likely related to patient's progression of colon cancer versus an acute viral gastroenteritis versus side effects from medications and/ or chemotherapy. He has new found ascites and increase in hepatic METS. The patient additionally has been having some nausea and vomiting. This could be related to his recent chemo. He does not have any evidence of obstruction on imaging at this time. The patient received Phenergan and Dilaudid in the emergency department and since has been pain-free and more comfortable. He has not had any further issues with nausea or vomiting. 2. Nausea and vomiting. Continue Phenergan, Zofran p.r.n. Currently symptoms are resolved. 3. Chronic medical issues, colon cancer stage IV. Consult Oncology in the morning as per day team. 4. Anemia, likely of chronic disease in setting of colon cancer and chemotherapy. The patient does not require any transfusion. No evidence of active bleeding but will monitor routine labs. 5. Prediabetes. Blood sugars are slightly elevated but nonfasting lab. The patient is not currently on any medication. We will not plan to monitor with Accu-Cheks. 6. Bipolar disorder. Continue patient's Lamictal and Celexa. 7. Attention deficit hyperactivity disorder. Patient was previously on Adderall, but this is not currently listed on his current available MAR, has not yet been updated by pharmacy. 8. Asthma. Continue with albuterol p.r.n. 9. Obstructive sleep apnea. The patient has his CPAP at bedside and in place. 10. Obesity with BMI 35.5. Mobilize, dietary changes. 11. Fluid, electrolytes, nutrition. Patient will receive intravenous fluids overnight for gentle hydration. Electrolyte monitoring and replacement if needed. 12. Prophylaxis with SCDs. Holding anticoagulation in setting of anemia and mobilize. Anticipate also short hospital stay. If patient should stay additional day, then consider initiation of anticoagulation. 13. Code status is full at this time. We will need to clarify with the patient in the morning as he is quite somnolent and unable to have an in depth conversation. DISPOSITION: The patient is admitted to observation status on medical oncology floor at this time. /[id number]/MODL MTDD
[2018-05-09] MEDS ORDERED: ALBUTEROL 3 ML DEYVIAL IH PRN (07:37)
[2018-05-09] MEDS ORDERED: ESCITALOPRAM OXALATE 10 MG TAB PO SCH (09:00)
--- NOTE | 2018-05-09 09:12 | ASMTCMCOM ---
CM Note CM Note Notes: Chart reviewed. 47 year old male admitted via ED with c/o Nausea and vomiting and abdominal pain. He suffers for stage IV colon cancer. Normally lives with his and children. Needs TBD. CM to follow. Plan: TBD Date Signed: 05/09/2018 09:11 AM Electronically Signed By:Myra Kendrick RN
[2018-05-09] MEDS ORDERED: CETIRIZINE 10 MG TAB PO PRN (10:24)
[2018-05-09] MEDS ORDERED: lamoTRIgine 100 MG TAB PO SCH ×2 (11:15)
--- NOTE | 2018-05-09 13:35 | GCON ---
[f rep st] CONSULTATION ONCOLOGY INITIAL VISIT PRIMARY ONCOLOGIST: Dr. Urban Stone. REASON FOR VISIT: E and M for metastatic colon cancer. HISTORY OF PRESENT ILLNESS: The patient is a 47-year-old gentleman who was initially diagnosed with colon cancer, I think with mostly isolated liver metastases in August 2014. He started on FOLFOX pl us Avastin, but after 4 cycles, he only had stable disease. He was then changed to FOLFIRI plus Avas tin, but in January, he presented with a bowel perforation. At that time, the CT scan showed decreased size in the mass and the liver metastases. After recovery, which included surgical resection, he re started on FOLFIRI without Avastin. He was scheduled to get another followup CT scan soon. He has b een having more difficulty tolerating the chemotherapy with increasing nausea and vomiting, even befo re starting chemotherapy. Yesterday, he woke up with some abdominal pain that lasted most of the day , and he did not have much appetite. Last night, he woke up with dry heaving, and when he was being driven to the emergency room, he was having some vomiting. He was worried about another perforation. He did have a couple bowel movements yesterday and a little diarrhea last night, but no fever. He was admitted, and a CT scan was obtained, and he was started on hydration. He is feeling better, and he just recently ate lunch. He is in the room with his . ALLERGIES: He has no known drug allergies. HOME MEDICATIONS: Include escitalopram, Lamictal, Compazine, Advair, cetirizine, and albuterol. PAST MEDICAL HISTORY: Chronic illnesses include the colon cancer, as described above; asthma; bipola r disorder; attention deficit hyperactivity disorder; COPD; sleep apnea. PAST SURGICAL HISTORY: Includes palate repair, and exploratory laparoscopy, sigmoid colon resection and reanastomosis for perforation. FAMILY HISTORY: Really negative for cancer in first-degree relatives. SOCIAL HISTORY: He is . Has 2 young children. Does not smoke or drink. REVIEW OF SYSTEMS: Ten-point review of systems performed. Pertinent positives as per HPI, otherwise negative. PHYSICAL EXAM: VITAL SIGNS: Temperature is 36.9, pulse 63, blood pressure 135/87. GENERAL: He is actually comfortable appearing, in no distress. HEENT: Unremarkable. LUNGS: Clear. CARDIAC: Reg ular. ABDOMEN: A little firm in the mid epigastric area, soft, nontender. Bowel sounds are present , although a little bit decreased. NEUROLOGICAL: Grossly intact. LABORATORY DATA: CBC shows mild anemia, but otherwise unremarkable. Chemistries are unremarkable. CT scan, which I reviewed with Radiology, shows that the liver lesions are only minimally changed. H owever, there is new small volume ascites and extensive omental caking and peritoneal nodular carcino matosis that was only minimally present previously. There is no evidence of pneumoperitoneum or sign s of perforation or bowel obstruction. IMPRESSION: 1. Acute abdominal pain, nausea and vomiting. 2. Metastatic colon cancer with progression on CT. The problems he has been having lately may be related to the progression plus side effects of the meek motherapy. This may be why he is feeling a little better now. If he is able to take p.o. and keep i t down without any further problems, then I think it would be fine for him to go home and follow up. I believe he has an appointment with Dr. Stone. We briefly discussed what the findings on CT neha n. It primarily means that the current treatment does not seem to be adequately effective. He may n eed to have other therapy. Dr. Stone has talked to him a little bit in the past about doing an ex tensive surgical resection with intraperitoneal chemo and perhaps liver-directed therapy. I explaine d to him there is not a lot of information whether that is effective or not, but he is an otherwise y oung man, and it can be something to look into. He is interested in a palliative care consult, and I told him I would let Dr. Stone know about the recent findings. /[id number]/MODL
--- NOTE | 2018-05-09 14:09 | ASMTCMCOM ---
CM Note CM Note Notes: Patient reports he initially declined palliative care consult but now he and his family would like to pursue a consultation. Rferral in allscripts. Spoke to Jayme and they will reach out to them on Saturday. Date Signed: 05/09/2018 02:09 PM Electronically Signed By:Myra Kendrick RN
--- NOTE | 2018-05-09 14:14 | PDDCSUM ---
Discharge Summary Discharge Summary: This is a 47 yo male with metastatic colon cancer who was admitted with abd pain and poor oral intake. He was given IVF and is now able to tolerate a regular diet. He is much better and is requesting discharge. DDX: -Abd pain, etiology is likely multifactorial to include possible SE from chemo -Nausea and vomiting, resolved -Dehydration, resolved with IVF -colon Cancer Exam: NAD AAOX3 RRR CTA B S/NT/ND MEDS: SEE MED RED F/U: WITH ONCOLOGY IN ONE WEEK TOTAL TIME SPENT ON D/C IS 35 MINS
--- NOTE | 2018-05-09 14:15 | ASMTLACE ---
LACE Length of stay for Answers: Less than 1 day current admission Comorbidities - select Answers: Any tumor (including all that apply lymphoma or leukemia) # of Emergency department Answers: 3-4 visits in the last 6 months Score: 5 Date Signed: 05/09/2018 02:14 PM Electronically Signed By:Myra Kendrick RN
--- NOTE | 2018-05-09 14:17 | ASMTCMCOM ---
CM Note CM Note Notes: Patient has been medically cleared to dc home with family support. Palliative to consult with patient on Saturday ([facility]). Plan: Home with out patient palliative via [facility]. Date Signed: 05/09/2018 02:16 PM Electronically Signed By:Myra Kendrick RN
[2018-05-09 16:13] VITALS: BP 125/75
[2018-05-10] MEDS ORDERED: lamoTRIgine 100 MG TAB PO SCH (09:00)
[2018-05-10] MEDS ORDERED: ESCITALOPRAM OXALATE 10 MG TAB PO SCH (09:00)
== END 2018-05-09 17:16 | disposition home or self-care (01) ==
LOC: F1N 05-09 02:39
PROVIDERS: ADMIT Family Medicine; ATTEND Family Medicine
DX: R10.30 Lower abdominal pain, unspecified (principal); R11.2 Nausea with vomiting, unspecified; E86.0 Dehydration; C18.9 Malignant neoplasm of colon, unspecified; C78.7 Secondary malignant neoplasm of liver and intrahepatic bile duct
CPT/HCPCS: 74177; G0378; 96374; J1170; J1642; J2550; Q9967